=== PATIENT | male | born 1990 | race Caucasian/White ===

== ENCOUNTER → 2016-10-28 | Outpatient (CLI) | payer MEDICARE, MEDICAID ==
[~2016-10-28] MED LIST: AMAN100C18 PO; AMAN100T PO; AMLO10TA2 PO; ASPI1TAB69 PO; ASPI1TAB91 PO; BACI500O9 TOPICAL; CARB200T PO; CARB400T2 PO; CARV12.52 PO; CLAR10CA3 PO; FLUT1SPR16 EACH NARE; IBUP200T2 PO; IBUP800T23 PO; LEVO100T5 PO; LISI20TA3 PO; METH1CHW2 PO; METH5TAB7 PO; PEPT262S PO; ZOFR4TAB PO
[2016-10-28 08:58] LABS: MEAN CELL VOLUME 93.5 FL (80.0-100.0); MEAN CORPUSCULAR HEMOGLOBIN 31.7 PG (27.0-34.0); PLATELET COUNT 171 TH/MM3 (150-450); RED BLOOD COUNT 5.03 MIL/MM3 (4.50-5.90); RED CELL DISTRIBUTION WIDTH 13.3 % (11.6-17.2); REVIEW FLAG FINAL; WHITE BLOOD COUNT 7.1 TH/MM3 (4.0-11.0)
== END ==
LOC: CLAB 08:21
PROVIDERS: ATTEND Family Medicine
DX: R50.9 Fever, unspecified (principal)
CPT/HCPCS: 36415; 84443; 85027

== ENCOUNTER 2017-01-26 10:11 | Observation (INO) | payer MEDICARE, MEDICAID ==
[~2017-01-26] VITALS: Ht 157.5 cm; Wt 75.0 kg
[2017-01-26] VITALS (11 sets, daily range): BP systolic 110–124; BP diastolic 59–74; PULSE 66–86; RESP 16–21; TEMP 96.8–98.9; O2SAT 97–99
[~2017-01-26 10:11] MED LIST changes: -AMAN100C18 PO; -ASPI1TAB91 PO; -BACI500O9 TOPICAL; -CARB200T PO; -CLAR10CA3 PO; -FLUT1SPR16 EACH NARE; -IBUP200T2 PO; -METH1CHW2 PO; -PEPT262S PO; -ZOFR4TAB PO
[2017-01-26] MEDS ORDERED: SODIUM CHLOR 0.9% 1000 ML INJ 1,000 ML IV ONE (10:30)
[2017-01-26] MEDS ORDERED: SODIUM CHLORIDE 0.9% FLUSH 10 ML FLUSH IVF PRN (10:30)
[2017-01-26 10:42] LABS: AUTOMATED NEUTROPHIL # 5.9 TH/MM3 (1.8-7.7); BASOPHIL % 0.6 % (0.0-2.0); EOSINOPHIL # 0.3 TH/MM3 (0-0.4); EOSINOPHIL % 3.1 % (0.0-4.0); HEMATOCRIT 48.8 % (39.0-51.0); HEMO FLAGS DIFF FINAL; LYMPH % 15.7 % (9.0-44.0); LYMPHOCYTE # 1.3 TH/MM3 (1.0-4.8); MEAN CELL VOLUME 95.1 FL (80.0-100.0); MEAN CORPUSCULAR HEMOGLOBIN 32.1 PG (27.0-34.0); MEAN CORPUSCULAR HGB CONC 33.7 % (32.0-36.0); MONO % 8.1 % (0.0-8.0); NEUT % 72.5 % (16.0-70.0); PLATELET COUNT 185 TH/MM3 (150-450); RED BLOOD COUNT 5.13 MIL/MM3 (4.50-5.90); RED CELL DISTRIBUTION WIDTH 12.2 % (11.6-17.2); WHITE BLOOD COUNT 8.2 TH/MM3 (4.0-11.0)
[2017-01-26 10:54] LABS: INTERNATIONAL NORMALIZED RATIO 1.1 RATIO; PROTHROMBIN TIME - PATIENT 12.2 SEC (9.8-11.6)
[2017-01-26] MEDS ORDERED: CARB400T2 PO ×2 (11:04)
[2017-01-26] MEDS ORDERED: CLAR10CA3 PO (11:04)
[2017-01-26] MEDS ORDERED: IBUP200T2 PO (11:04)
[2017-01-26] MEDS ORDERED: PEPT262S PO (11:04)
[2017-01-26] MEDS ORDERED: BACI500O9 TOPICAL (11:04)
[2017-01-26] MEDS ORDERED: AMAN100T PO (11:04)
[2017-01-26] MEDS ORDERED: ZOFR4TAB PO (11:04)
[2017-01-26] MEDS ORDERED: FLUT1SPR16 EACH NARE (11:04)
[2017-01-26] MEDS ORDERED: ASPI1TAB91 PO (11:04)
[2017-01-26 11:08] LABS: ANION GAP 5 MEQ/L (5-15); BLOOD UREA NITROGEN 20 MG/DL (7-18); CHLORIDE 100 MEQ/L (98-107); CREATINE KINASE 102 U/L (39-308); GLOMERULAR FILTRATION RATE 71 ML/MIN (>89); SODIUM (NA) 138 MEQ/L (136-145)
[2017-01-26 11:11] LABS: POTASSIUM 4.5 MEQ/L (3.5-5.1)
--- NOTE | 2017-01-26 12:02 | RADRPT ---
EXAM DATE/TIME: 01/26/2017 11:29 [facility] COMPARISON: No previous studies available for comparison. INDICATIONS : Possible syncopal episode with fall RADIATION DOSE: 36.90 CTDIvol (mGy) MEDICAL HISTORY : None SURGICAL HISTORY : None. ENCOUNTER: Initial ACUITY: 1 day PAIN SCALE: 0/10 LOCATION: cranial TECHNIQUE: Multiple contiguous axial images were obtained of the head. Using automated exposure control and adj ustment of the mA and/or kV according to patient size, radiation dose was kept as low as reasonably a chievable to obtain optimal diagnostic quality images. FINDINGS: The examination demonstrates a 5.0 x 2.0 cm arachnoid cyst over the high left parietal cortices. There is no acute intercranial hemorrhage. The ventricles are normal in size and configuration. No ma ss lesion is identified. The appearance of the posterior fossa is unremarkable. No findings to indica te acute cortical infarction are present. The osseous structures of the skull are intact. CONCLUSION: 1. 5.0 x 2.9 cm arachnoid cyst overlying the high left parietal cortices. This appears chronic in dur ation. This could be further assessed with MRI imaging if it is felt clinically warranted. 2. No acute abnormality identified. Ranjit Norwood MD on January 26, 2017 at 11:59 Board Certified Radiologist. This report was verified electronically.
--- NOTE | 2017-01-26 12:25 | PD ---
HPI Chief Complaint: Syncope/Near-Syncope Time Seen by Provider: 10:20 Travel History International Travel<30 days: No Contact w/Intl Traveler<30days: No Traveled to known affect area: No History of Present Illness HPI 27-year-old male came to the emergency room with history of syncopal episode while he was at a workshop. The syncope was witnessed. 911 was called. When they arrived patient blood pressure was 83 systolic. He was slowly waking up. Fluid was started and just prior to them coming into the emergency room blood pressure went up to 95 systolic. Patient is currently awake and answering questions appropriately. He says he feels very weak. When he passed out he fell and hurt his left knee. There is an abrasion. Patient says he did not hit his head. Vital signs upon arrival was stable. Blood pressure was 110 systolic. PFSH Past Medical History Narrative Medical List of his past medical, surgical, social and family history was reviewed from the nursing note. Diminished Hearing: No Gastrointestinal Disorders: Yes (FUNDAL PLACATION - NAUSEA ) Tetanus Vaccination: Unknown Influenza Vaccination: Yes Social History Alcohol Use: No Tobacco Use: No Substance Use: No Allergies-Medications (Allergen,Severity, Reaction): Coded Allergies: No Known Allergies (Unverified , 01/18/17) Comments No known drug allergies. Reported Meds & Prescriptions Reported Meds & Active Scripts Active Methylphenidate IR (Methylphenidate HCl) 5 Mg Tab 5 Mg PO DAILY Carvedilol 12.5 Mg Tab 12.5 Mg PO BID Lisinopril-Hctz 20-25 Mg Tab 1 Tab PO DAILY Levothyroxine (Levothyroxine Sodium) 100 Mcg Tab 100 Mcg PO DAILY Amlodipine (Amlodipine Besylate) 10 Mg Tab 10 Mg PO DAILY Ibuprofen 800 Mg Tab 800 Mg PO Q8H PRN Reported Sm Allergy Relief Nasal S (Fluticasone Propionate (Nasal)) 50 Mcg/Act Spr 1 Spr EACH NARE DAILY Amantadine (Amantadine HCl) 100 Mg Tab 200 Mg PO BID Aspirin Adult Low Strength (Aspirin) 81 Mg Tabdr 81 Mg PO DAILY IN THE PM Carbamazepine ER 12 HR (Carbamazepine) 400 Mg Tab 800 Mg PO DAILY IN THE PM Carbamazepine ER 12 HR (Carbamazepine) 400 Mg Tab 400 Mg PO DAILY IN THE AM Pepto-Bismol Liq (Bismuth Subsalicylate) 262 Mg/15 Ml Susp 30 Ml PO EVERY HOUR PRN Do not exceed 8 doses (240 mL or 16 tbsp) in 24 hours. Bacitracin Topical 500 Unit/Gm Oint 1 Applic TOPICAL DAILY PRN Apply to right foot as needed Ibuprofen 200 Mg Tab 400 Mg PO Q4H PRN Zofran (Ondansetron HCl) 4 Mg Tab 4 Mg PO Q6HR PRN Claritin (Loratadine) 10 Mg Cap 10 Mg PO DAILY PRN Narrative Medication List of his home medications reviewed from the nursing note. Review of Systems Except as stated in HPI: all other systems reviewed are Neg Physical Exam Narrative GENERAL: Awake, alert, mild distress SKIN: Focused skin assessment warm/dry. Superficial abrasion on the left knee. No active bleeding HEAD: Atraumatic. Normocephalic. EYES: Pupils equal and round. No scleral icterus. No injection or drainage. ENT: No nasal bleeding or discharge. Mucous membranes pink and moist. NECK: Trachea midline. No JVD. CARDIOVASCULAR: Regular rate and rhythm. No murmur appreciated. RESPIRATORY: No accessory muscle use. Clear to auscultation. Breath sounds equal bilaterally. GASTROINTESTINAL: Abdomen soft, non-tender, nondistended. Hepatic and splenic margins not palpable. MUSCULOSKELETAL: No obvious deformities. No clubbing. No cyanosis. No edema. NEUROLOGICAL: Awake and alert. No obvious cranial nerve deficits. Motor grossly within normal limits. Normal speech. PSYCHIATRIC: Appropriate mood and affect; insight and judgment normal. Data Data Last Documented VS Vital Signs Date Time Temp Pulse Resp B/P Pulse Ox O2 Delivery O2 Flow Rate FiO2 01/26/17 12:00 72 18 111/59 99 Room Air 01/26/17 10:19 98.1 Orders Electrocardiogram (01/26/17 10:20) Prothrombin Time / Inr (Pt) (01/26/17 10:20) Complete Blood Count With Diff (01/26/17 10:20) Basic Metabolic Panel (Bmp) (01/26/17 10:20) Creatine Kinase (Cpk) (01/26/17 10:20) Troponin I (01/26/17 10:20) Urinalysis - C+S If Indicated (01/26/17 10:20) Ct Brain W/O Iv Contrast(Rout) (01/26/17 10:20) Ecg Monitoring (01/26/17 10:20) Iv Access Insert/Monitor (01/26/17 10:20) Oximetry (01/26/17 10:20) Sodium Chloride 0.9% Flush (Ns Flush) (01/26/17 10:30) Carbamazepine (Tegretol) (01/26/17 10:20) Sodium Chlor 0.9% 1000 Ml Inj (Ns 1000 M (01/26/17 10:30) Admit Order (Ed Use Only) (01/26/17 12:43) Labs Laboratory Tests Test 01/26/17 01/26/17 10:25 12:30 White Blood Count 8.2 TH/MM3 Red Blood Count 5.13 MIL/MM3 Hemoglobin 16.5 GM/DL Hematocrit 48.8 % Mean Corpuscular Volume 95.1 FL Mean Corpuscular Hemoglobin 32.1 PG Mean Corpuscular Hemoglobin 33.7 % Concent Red Cell Distribution Width 12.2 % Platelet Count 185 TH/MM3 Mean Platelet Volume 8.1 FL Neutrophils (%) (Auto) 72.5 % Lymphocytes (%) (Auto) 15.7 % Monocytes (%) (Auto) 8.1 % Eosinophils (%) (Auto) 3.1 % Basophils (%) (Auto) 0.6 % Neutrophils # (Auto) 5.9 TH/MM3 Lymphocytes # (Auto) 1.3 TH/MM3 Monocytes # (Auto) 0.7 TH/MM3 Eosinophils # (Auto) 0.3 TH/MM3 Basophils # (Auto) 0.0 TH/MM3 CBC Comment DIFF FINAL Differential Comment Prothrombin Time 12.2 SEC Prothromb Time International 1.1 RATIO Ratio Sodium Level 138 MEQ/L Potassium Level 4.5 MEQ/L Chloride Level 100 MEQ/L Carbon Dioxide Level 33.0 MEQ/L Anion Gap 5 MEQ/L Blood Urea Nitrogen 20 MG/DL Creatinine 1.24 MG/DL Estimat Glomerular Filtration 71 ML/MIN Rate Random Glucose 123 MG/DL Calcium Level 8.4 MG/DL Total Creatine Kinase 102 U/L Troponin I LESS THAN 0.02 NG/ML Carbamazepine (Tegretol) Level 16.1 MCG/ML Urine Color YELLOW Urine Turbidity CLEAR Urine pH 6.5 Urine Specific Leonard 1.013 Urine Protein TRACE mg/dL Urine Glucose (UA) NEG mg/dL Urine Ketones NEG mg/dL Urine Occult Blood NEG Urine Nitrite NEG Urine Bilirubin NEG Urine Urobilinogen LESS THAN 2.0 MG/DL Urine Leukocyte Esterase NEG Urine WBC 1 /hpf Urine Squamous Epithelial <1 /hpf Cells Urine Hyaline Casts 1 /lpf Urine Mucus FEW /lpf Microscopic Urinalysis Comment CULT NOT INDICATED MDM Medical Decision Making Medical Screen Exam Complete: Yes Emergency Medical Condition: Yes Medical Record Reviewed: Yes Interpretation(s) Twelve-lead EKG was reviewed by me. Normal sinus rhythm, left axis deviation, right bundle branch block. Heart rate of 65 bpm. Differential Diagnosis Orthostatic hypotension, cardiac arrhythmia, intracranial bleed, dehydration Narrative Course 12:20 PM patient was given total of 1 L of IV fluid once arriving into the ER. CT scan showed an old arachnoid cyst but no acute findings. Blood test was positive for elevated carbamazepine level. Patient says that he had something very similar 2-3 months ago. I would like to admit this patient for IV fluid and repeat carbamazepine level to see if it comes down. Awaiting for the residents to call back. Procedures EKG Prior to Arrival: Yes Diagnosis Primary Impression: Syncope Qualified Code: R55 - Syncope, unspecified syncope type Additional Impressions: Dehydration Elevated carbamazepine level Admitting Information Admitting Physician Requests: Observation Vitor Vargas MD Jan 26, 2017 12:25
--- NOTE | 2017-01-26 12:59 | HHI.HP ---
[facility] Service Family Medicine Primary Care Physician No Primary Care Physician Admission Diagnosis syncope, elevated carbamazepine level Diagnoses: International Travel<30 Days: No Contact w/Intl Traveler<30days: No Known Affected Area: No History of Present Illness Mr. Haider is a 27 y/o with past medical history of blindness presents to the emergency department s/p witnessed syncopal episode. He reports that earlier today while walking for [employer] to the bus stop he lost consciousness for approximately 3 minutes. This episode was observed with no reports of jerking limbs, incontinence, or tongue biting. [facility]. He states that prior to that episode he was diaphoretic. He reports 3 days of nausea and headaches without vomiting or diarrhea. This is the second episode of syncope over the last year without unknown etiology. He states that he did not strike his head during the fall, but did scrape his knee. Reports his daily fluid intake as 1 cup of water and approximately 4 sodas per day. (Donovan Oneil MD R1) Review of Systems Constitutional: COMPLAINS OF: Fever (Subjective), Dizziness, DENIES: Chills Eyes: COMPLAINS OF: Blurred vision (Legally blind) Ears, nose, mouth, throat: DENIES: Vertigo, Throat pain, Running Nose Respiratory: DENIES: Cough, Shortness of breath Cardiovascular: DENIES: Chest pain, Palpitations Gastrointestinal: COMPLAINS OF: Abdominal pain, Nausea, DENIES: Constipation, Diarrhea, Vomiting Musculoskeletal: DENIES: Joint pain Integumentary: DENIES: Rash Hematologic/lymphatic: DENIES: Lymphadenopathy Neurologic: COMPLAINS OF: Headache Psychiatric: DENIES: Mood changes (Donovan Oneil MD R1) Past Family Social History Past Medical History Past Medical History: -Visual impairment (legally blind) -Seizures (no seizure activity noted for many years) -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 Emergency contact is Tevin Ye ). For fun, he plays on his computer, rides his electric scooter, and he likes to read. Denies any tobacco, alcohol or illicit drug history. (Donovan Oneil MD R1) Physical Exam Vital Signs Vital Signs Date Time Temp Pulse Resp B/P Pulse Ox O2 Delivery O2 Flow Rate FiO2 01/26/17 10:19 98.1 66 19 110/59 99 Physical Exam CONSTITUTIONAL/GEN: Well-developed, normally nourished 27-year-old male lying in bed in no acute distress. HEENT: Atraumatic, normocephalic. Patient with decreased vision, however EOMI. Oropharynx clear with no erythema or exudate. Mucous membranes dry. No rhinorrhea. No JVD or LAD appreciated. LUNGS: Clear to auscultation bilaterally with no CRW. CARDIOVASCULAR: Regular rate and rhythm with no MGR. Capillary refill >2 seconds GI/ABD: Soft, nondistended with positive bowel sounds. Scar from previous surgery from the upper thorax in the midline down into the lower abdomen. Gastrostomy tube capped in left mid-abdomen. : No CVA tenderness NEURO: No focal deficits. Cranial nerves II through XII intact. Extremity sensation, motor function, and strength intact in all 4 extremities. SKIN: Warm and dry, no rash. Abrasion left knee HEME/LYMPH: No bruising, petechia or significant adenopathy MUSC: Back is normal in appearance. Extremities are normal in appearance. PSYCH/MENTAL STATUS: Alert and oriented x 3. Laboratory Laboratory Tests Test 01/26/17 10:25 White Blood Count 8.2 Red Blood Count 5.13 Hemoglobin 16.5 Hematocrit 48.8 Mean Corpuscular Volume 95.1 Mean Corpuscular Hemoglobin 32.1 Mean Corpuscular Hemoglobin 33.7 Concent Red Cell Distribution Width 12.2 Platelet Count 185 Mean Platelet Volume 8.1 Neutrophils (%) (Auto) 72.5 Lymphocytes (%) (Auto) 15.7 Monocytes (%) (Auto) 8.1 Eosinophils (%) (Auto) 3.1 Basophils (%) (Auto) 0.6 Neutrophils # (Auto) 5.9 Lymphocytes # (Auto) 1.3 Monocytes # (Auto) 0.7 Eosinophils # (Auto) 0.3 Basophils # (Auto) 0.0 CBC Comment DIFF FINAL Differential Comment Prothrombin Time 12.2 Prothromb Time International 1.1 Ratio Sodium Level 138 Potassium Level 4.5 Chloride Level 100 Carbon Dioxide Level 33.0 Anion Gap 5 Blood Urea Nitrogen 20 Creatinine 1.24 Estimat Glomerular Filtration 71 Rate Random Glucose 123 Calcium Level 8.4 Total Creatine Kinase 102 Troponin I LESS THAN 0.02 Carbamazepine (Tegretol) Level 16.1 (Donovan Oneil MD R1) Result Diagram: 01/26/17 1025 01/26/17 1025 Assessment and Plan Assessment and Plan Mr. Haider is a 27 y/o with past medical history of blindness presents to the emergency department s/p witnessed syncopal episode likely secondary to depleted intervascular volume. Code Status Full Discussed Condition With Dr. Vargas, ER physician Dr. Fito Mendiola (Donovan Oneil MD R1) Attending Attestation Patient seen and examined. Case reviewed and discussed with the resident team. Agree with plan of care as discussed with me and documented in the resident note. (Beatriz Payton MD) Problem List: (1) Syncope Status: Acute Plan: Patient with witnessed syncopal episode likely secondary to dehydration. Patient will be admitted for further observation and IV hydration. No report of seizure-like activity and patient showing no signs of postictal state despite history of seizure-like activity. Head CT: 5 x 2.9 cm arachnoid cyst overlying the high left parietal cortices. Appears chronic in duration. Could be further assessed with MRI imaging if clinically warranted. No acute abnormality identified. CBC: Within normal limits BMP: Glucose 123, BUN 20, CO2 33 LFT: Pending Troponin less than 0.02 EEG: Pending Echocardiogram: Pending Carotid ultrasound: PendingEKG: Normal sinus rhythm with rate of 65. Right bundle branch block. No QRS prolongation. No QT interval prolongation. Inverted T waves V1 through V6. (Per medical team read) Cardiac telemetry Fall precautions Medications: Home cardiac/blood pressure medications continued, except for amlodipine 10 mg daily held Normal saline at 100 mL per hour, discontinued after chart review showing severe heart failure history Ativan 2 mg every 10 minutes when necessary for seizures (2) Dehydration Status: Acute Plan: Patient with signs on physical exam of mild dehydration likely contributing to his syncopal episode. Please see plan as above. (3) Elevated carbamazepine level Status: Acute Plan: Patient found to have elevated carbamazepine level on admission. Level will be repeated every 4 hours until level begins to decrease (levels may peak within first 96 hours). Patient without any recent seizure activity or prolonged QRS on EKG. Carbamazepine level: 16.1, repeat every 4 hours Medications: Consider sodium bicarbonate for acute toxicity with EKG or acute neurological changes (4) Heart failure Status: Acute Plan: Patient with history of chronic heart failure since his sense 5 years. Echocardiogram, pending Medications: Continue home medications, amlodipine decreased to 5 mg daily Fluids discontinued (5) Visual impairment Status: Chronic Plan: Patient with visual impairment since Accommodate as necessary (6) Ajpnydy-Hxbqwzodc-Qfcwg syndrome Status: Chronic Plan: Patient with right lower extremity concerning forKlippel Trenaunay Kendall Syndrome Continue home regimen Continue to monitor (7) Hypothyroidism Status: Acute Plan: Patient with history of hypothyroidism Continue levothyroxine 100 g daily (8) Nutrition, metabolism, and development symptoms Status: Acute Plan: Fluids: Initiated, however due to patient's CHF discontinued Diet: Swallowing evaluation pending regular diet as tolerated Electrodes: Within normal limits, continue to monitor GI prophylaxis: Not indicated Prophylaxis: Zofran when necessary for nausea/vomiting, Clonidine when necessary for BP greater than 180/100, Amelie-Colace when necessary for constipation, hydroxyzine PRN for insomnia (9) No contraindication to deep vein thrombosis (DVT) prophylaxis Status: Acute Plan: Heparin twice a day SCD/TEDs (Donovan Oneil MD R1) Physician Certification 2 Midnight Certification Type: Admission for Inpatient Services Order for Inpatient Services The services are ordered in accordance with Medicare regulations or non- Medicare payer requirements, as applicable. In the case of services not specified as inpatient-only, they are appropriately provided as inpatient services in accordance with the 2-midnight benchmark. Estimated LOS (days): 3 3 days is the estimated time the patient will need to remain in the hospital, assuming treatment plan goals are met and no additional complications. Post-Hospital Plan: Home (Donovan Oneil MD R1) Problem Qualifiers (1) Syncope: Qualified Code: R55 - Syncope, unspecified syncope type Donovan Oneil MD R1 Jan 26, 2017 12:59 Beatriz Payton MD Jan 27, 2017 08:10
[2017-01-26] MEDS ORDERED: SODIUM CHLORIDE 0.9% FLUSH 10 ML FLUSH IV FLUSH PRN ×2 (13:00→17:45)
[2017-01-26] MEDS ORDERED: SODIUM CHLORIDE 0.9% FLUSH 10 ML FLUSH IV FLUSH SCH (13:00)
[2017-01-26 13:04] LABS: BLOOD, URINE NEG (NEG); COMMENT (UR) CULT NOT INDICATED; CULTURE IF INDICATED CULT NOT INDICATED; GLUCOSE,URINE NEG (NEG); HYALINE CAST, URINE 1 /lpf (RARE); KETONE, URINE NEG (NEG); MUCUS URINE FEW /lpf (OCC); NITRITE,URINE NEG (NEG); PH, URINE 6.5 (5.0-8.5); SQUAMOUS EPITHELIAL CELL URINE <1 /hpf (0-5); URINE COLOR YELLOW (YELLW/STRAW)
[2017-01-26] MEDS ORDERED: SODIUM CHLOR 0.9% 1000 ML INJ 1,000 ML IV SCH (15:00)
--- NOTE | 2017-01-26 17:02 | HHI.FPPN ---
Subjective Remarks Patient was seen, examined and discussed with the medicine team. This is a 27-year-old male with impaired vision who was walking to a bus stop today carrying a drink from [employer] and lost consciousness. He was observed, and [facility] brought him to the emergency department. He does not think he struck his head and thinks she may have been out for about 3 minutes. Did not bite his tongue, did not lose continence. He did scrape his left knee. This happened to him one year ago as well. He notes for the last 3 days or so he has had some stomach upset, and just prior to the event of today, he felt very sweaty. He has been living locally at [facility] since August. Please see history and physical examination for this hospitalization for additional past, family, social history and review of systems. He is hungry, and understands that he will be admitted for a period of observation. His carbamazepine dose has not recently been changed, and he has not taken his medication any differently than usual. He gets assistance setting up his medications and they are always double checked by a nurse. Objective Vitals Vital Signs Date Time Temp Pulse Resp B/P Pulse Ox O2 Delivery O2 Flow Rate FiO2 01/26/17 16:24 98.9 74 18 124/73 98 01/26/17 15:31 86 01/26/17 14:33 96.8 73 16 119/71 99 01/26/17 14:00 74 20 119/72 100 01/26/17 13:00 72 21 114/70 99 Room Air 01/26/17 12:00 72 18 111/59 99 Room Air 01/26/17 11:00 70 18 99 01/26/17 10:19 Room Air 01/26/17 10:19 98.1 66 19 110/59 99 Result Diagram: 01/26/17 1025 01/26/17 1025 Other Results Laboratory Tests Test 01/26/17 01/26/17 10:25 12:30 Neutrophils (%) (Auto) 72.5 % Monocytes (%) (Auto) 8.1 % Prothrombin Time 12.2 SEC Carbon Dioxide Level 33.0 MEQ/L Blood Urea Nitrogen 20 MG/DL Estimat Glomerular Filtration 71 ML/MIN Rate Random Glucose 123 MG/DL Calcium Level 8.4 MG/DL Troponin I LESS THAN 0.02 NG/ML Carbamazepine (Tegretol) Level 16.1 MCG/ML Urine Mucus FEW /lpf Imaging Last Impressions Head CT 01/26/17 1020 Signed Impressions: Service Date/Time: January 11:29 - CONCLUSION: 1. 5.0 x 2.9 cm arachnoid cyst overlying the high left parietal cortices. This appears chronic in duration. This could be further assessed with MRI imaging if it is felt clinically warranted. 2. No acute abnormality identified. Ranjit Norwood MD Objective Remarks O. CONSTITUTIONAL/GEN: normally nourished, in NAD. EYES: conjunctiva normal, PERRLA, EOMI. ENT: Mouth and pharynx normal. Mucous membranes slightly dry NECK: No thyromegaly or lymphadenopathy LUNGS: clear A-P, respiratory effort is normal. CARDIOVASCULAR: RR without murmur or gallop. No significant edema. GI/ABD: soft without masses, without organomegaly. Scar from previous surgery from the upper thorax in the midline down into the lower abdomen. Gastrostomy tube capped in left mid-abdomen. : no CVA tenderness NEURO: No focal deficits. Tested and intact SKIN: color normal, no rashes noted. Abrasion left knee HEME/LYMPH: no bruising, petechia or significant adenopathy MUSC: back is normal in appearance. Extremities are normal in appearance. PSYCH/MENTAL STATUS: Alert and oriented x 3. A/P Assessment and Plan Syncopal episode and a 27-year-old with congenital visual impairment and Klippel Trenaunay Kendall syndrome and high carbamazepine level. Attending Attestation Patient seen and examined. Case reviewed and discussed with the resident team. Agree with plan of care as discussed with me and documented in the resident note. Problem List: (1) Syncope Status: Acute (2) Dehydration Status: Acute (3) Elevated carbamazepine level Status: Acute (4) Bfinedx-Cepyqdqlv-Tiqdi syndrome Status: Chronic (5) Visual impairment Status: Chronic Problem Qualifiers (1) Syncope: Qualified Code: R55 - Syncope, unspecified syncope type Beatriz Payton MD Jan 26, 2017 17:01
[2017-01-26] MEDS ORDERED: IBUPROFEN 200 MG TAB PO PRN (19:45)
[2017-01-26] MEDS ORDERED: LORazepam 2 MG/ML VIAL IV PRN (19:45)
[2017-01-26] MEDS ORDERED: BACITRACIN TOP OINT 15 GM TUBE TOPICAL PRN (19:45)
[2017-01-26] MEDS ORDERED: BISMUTH SUBSALICYLATE 240 ML BTL PO PRN (19:45)
[2017-01-26] MEDS ORDERED: ONDANSETRON ODT 4 MG TAB PO PRN ×2 (20:00→20:15)
[2017-01-26] MEDS ORDERED: DOCUSATE SODIUM 50 MG/SENNA 8.6 MG TAB PO PRN (20:15)
[2017-01-26] MEDS ORDERED: cloNIDine HCL 0.1 MG TAB PO PRN (20:15)
[2017-01-26] MEDS: SODIUM CHLORIDE 0.9% FLUSH 10 ML FLUSH IV FLUSH SCH (21:00)
[2017-01-26] MEDS: CARVEDILOL 12.5 MG TAB PO SCH (21:11)
[2017-01-26] MEDS: AMANTADINE HCL 100 MG CAP PO SCH (21:11)
[2017-01-26] MEDS: HEPARIN SODIUM - SQ 10,000 UNITS/ML VIAL SQ SCH (21:12)
[2017-01-26 22:47] LABS: INDIRECT BILIRUBIN 0.4 MG/DL (0.0-0.8); TOTAL BILIRUBIN ADULT 0.5 MG/DL (0.2-1.0)
--- NOTE | 2017-01-26 23:58 | RADRPT ---
EXAM DATE/TIME: 01/26/2017 23:07 [facility] COMPARISON: No previous studies available for comparison. INDICATIONS : Syncope. MEDICAL HISTORY : Hypertension. Thyroid disease. Seizures. Sleep apnea. Asthma. ADD. SURGICAL HISTORY : Heart surgery as child. G-tube placed. Right foot. Cleft palate repair. ENCOUNTER: Initial ACUITY: 1 day PAIN SCORE: 0/10 LOCATION: Bilateral neck PEAK SYSTOLIC VELOCITIES (cm/sec): ICA/CCA RATIO: Right: 0.5 Left: 0.6 ICA: Right: 58 Left: 66 CCA: Right: 110 Left: 104 ECA: Right: 83 Left: 79 VERTEBRAL: Right: 38 antegrade Left: 35 antegrade Elevated flow velocities and ICA/CCA ratios have been found to correlate with increased degrees of vessel stenosis, calculated as percentage of diameter relative to a normal segment of distal ICA/CCA FINDINGS: RIGHT CAROTID: No significant stenosis is visualized. The waveforms are within normal limits. LEFT CAROTID: No significant stenosis is visualized. The waveforms are within normal limits. VERTEBRAL ARTERIES: Antegrade flow is seen in both vertebral arteries. MISCELLANEOUS: None. CONCLUSION: 1. No evidence of hemodynamically significant lesion. Alvaro Lebron MD on January 26, 2017 at 23:57 Board Certified Radiologist. This report was verified electronically.
[2017-01-27] VITALS: BP 104/59; PULSE 71; RESP 20; TEMP 98.2; O2SAT 99
[2017-01-27 04:00] VITALS: BP 113/61; PULSE 69; RESP 20; TEMP 97.8; O2SAT 98
[2017-01-27] MEDS ORDERED: LEVOTHYROXINE SODIUM 100 MCG TAB PO SCH (06:00)
[2017-01-27 07:17] VITALS: BP 130/74; PULSE 71; RESP 16; TEMP 98.5; O2SAT 98
[2017-01-27 07:40] LABS: BASOPHIL # 0.1 TH/MM3 (0-0.2); BASOPHIL % 0.7 % (0.0-2.0); EOSINOPHIL # 0.2 TH/MM3 (0-0.4); EOSINOPHIL % 2.7 % (0.0-4.0); HEMO FLAGS DIFF FINAL; LYMPH % 22.1 % (9.0-44.0); LYMPHOCYTE # 1.7 TH/MM3 (1.0-4.8); MEAN CELL VOLUME 95.1 FL (80.0-100.0); MEAN CORPUSCULAR HEMOGLOBIN 32.2 PG (27.0-34.0); MEAN CORPUSCULAR HGB CONC 33.9 % (32.0-36.0); NEUT % 66.5 % (16.0-70.0); PLATELET COUNT 170 TH/MM3 (150-450); RED BLOOD COUNT 4.83 MIL/MM3 (4.50-5.90); RED CELL DISTRIBUTION WIDTH 11.9 % (11.6-17.2); WHITE BLOOD COUNT 7.5 TH/MM3 (4.0-11.0)
[2017-01-27 08:00] LABS: ALT (GPT) 26 U/L (12-78); ANION GAP 9 MEQ/L (5-15); AST (GOT) 14 U/L (15-37); BICARBONATE 29.3 MEQ/L (21.0-32.0); BLOOD UREA NITROGEN 13 MG/DL (7-18); CHLORIDE 100 MEQ/L (98-107); GLOMERULAR FILTRATION RATE 125 ML/MIN (>89); POTASSIUM 3.5 MEQ/L (3.5-5.1); SODIUM (NA) 138 MEQ/L (136-145)
[2017-01-27 08:03] LABS: ALKALINE PHOSPHATASE 66 U/L (45-117); TOTAL BILIRUBIN ADULT 0.7 MG/DL (0.2-1.0)
[2017-01-27] MEDS ORDERED: amLODIPine BESYLATE 5 MG TAB PO SCH (09:00)
[2017-01-27] MEDS ORDERED: LISINOPRIL 20 MG TAB PO SCH (09:00)
[2017-01-27] MEDS: HEPARIN SODIUM - SQ 10,000 UNITS/ML VIAL SQ SCH (09:00)
[2017-01-27] MEDS ORDERED: METHYLPHENIDATE HCL 5 MG TAB PO SCH (09:00)
[2017-01-27] MEDS ORDERED: ASPIRIN EC 81 MG TABEC PO SCH (09:00)
[2017-01-27] MEDS ORDERED: NON-FORMULARY DRUG (Lisinopril-Hctz 1 TAB) PO SCH (09:00)
[2017-01-27] MEDS ORDERED: HYDROCHLOROTHIAZIDE 25 MG TAB PO SCH (09:00)
[2017-01-27] MEDS: SODIUM CHLORIDE 0.9% FLUSH 10 ML FLUSH IV FLUSH SCH (10:59)
[2017-01-27] MEDS: CARVEDILOL 12.5 MG TAB PO SCH (10:59)
[2017-01-27 11:00] VITALS: PULSE 85
[2017-01-27] MEDS: AMANTADINE HCL 100 MG CAP PO SCH (11:00)
[2017-01-27 11:27] VITALS: BP 121/77; PULSE 78; RESP 16; TEMP 97.8; O2SAT 97
--- NOTE | 2017-01-27 13:13 | HHI.DCPOC ---
Discharge Care Plan Diagnosis: (1) Syncope (2) Dehydration (3) Elevated carbamazepine level Goals to Promote Your Health * To prevent worsening of your condition and complications * To maintain your health at the optimal level Directions to Meet Your Goals Take your medications as prescribed Follow your dietary instruction Follow activity as directed Keep your appointments as scheduled Take your immunizations and boosters as scheduled If your symptoms worsen call your PCP, if no PCP go to Urgent Care Center or Emergency Room Smoking is Dangerous to Your Health. Avoid second hand smoke Call the 24-hour hour crisis hotline for domestic abuse at Donovan Oneil MD R1 Jan 27, 2017 13:13
[2017-01-27 15:14] VITALS: BP 126/74; PULSE 75; RESP 16; TEMP 98.1; O2SAT 98
--- NOTE | 2017-01-27 16:13 | MG ---
cc: VALARIE GOLDEN M.D. Lab No: [id number] Date: Age: 27 Sex: M Race: REFERRING: Dr. Oneil. ROOM: -. Hyperventilation and photic completed. Fair effort awake study. CT showed a 1.5 x 2.9 arachnoid cyst high left parietal chronic. Admitted with syncope while at a workshop. He has a history of thyroid disease, sleep apnea, history of seizures, cleft palate repaired. On Synthroid, Symmetrel, Coreg and heparin. DESCRIPTION OF RECORD: There is quite a bit of muscle artifact overall seems he has a 6-7 Hz background. Photic stimulation with minimal driving response. A lot of muscle artifact. Hyperventilation was then performed with no significant change. No attenuation. IMPRESSION: Mildly abnormal EEG due to mild slowing may be due to medication effect or mild encephalopathy. No evidence of any epileptiform features in this one recording. Clinical correlation. MD ANA Logan/PEE /2:18 PM /4:09 PM
--- NOTE | 2017-01-27 17:27 | ECHRPT ---
Indication: syncope CONCLUSIONS Wall thickness is normal. The left ventricular systolic function is low normal with an estimated ejection fraction in the rang e of 50- 55%. Sebir-ce-ktva mitral valve regurgitation. Mild aortic valve regurgitation. There is mild tricuspid valve regurgitation. BP: 130 / 71 HR: 71 Rhythm: MEASUREMENTS (Male / Female) Normal Values Technical Quality:Fair 2D ECHO LV Diastolic Diameter PLAX 4.4 cm 4.2 - 5.9 / 3.9 - 5.3 cm LV Systolic Diameter PLAX 3.5 cm IVS Diastolic Thickness 1.0 cm 0.6 - 1.0 / 0.6 - 0.9 cm LVPW Diastolic Thickness 0.9 cm 0.6 - 1.0 / 0.6 - 0.9 cm LV Relative Wall Thickness 0.4 RV Internal Dim ED PLAX 2.1 cm M-MODE Aortic Root Diameter MM 2.6 cm LA Systolic Diameter MM 3.2 cm LA Ao Ratio MM 1.2 AV Cusp Separation MM 1.5 cm DOPPLER AI Peak Velocity 314.0 cm/s AI Peak Gradient 39.4 mmHg AI Pressure Half Time 722.0 ms Mitral E Point Velocity 73.1 cm/s Mitral A Point Velocity 53.3 cm/s Mitral E to A Ratio 1.4 TR Peak Velocity 213.0 cm/s TR Peak Gradient 18.1 mmHg FINDINGS LEFT VENTRICLE Normal left ventricular size and wall thickness. Wall thickness is normal. The left ventricular systolic function is low normal with an estimated ejection fraction in the rang e of 50- 55%. RIGHT VENTRICLE Normal right ventricular size and systolic function. LEFT ATRIUM The left atrial size is normal. RIGHT ATRIUM The right atrial size is normal. ATRIAL SEPTUM Normal atrial septal thickness without atrial level shunting by limited color doppler interrogation. AORTA The aortic root and proximal ascending aorta are normal in size on limited imaging. MITRAL VALVE Structurally normal mitral valve. Unlxi-wi-jrkw mitral valve regurgitation. AORTIC VALVE Trileaflet aortic valve. Mild aortic valve regurgitation. TRICUSPID VALVE Structurally normal tricuspid valve. There is mild tricuspid valve regurgitation. PULMONARY VALVE The pulmonary valve is not well visualized. VESSELS The inferior vena cava is normal in size. PERICARDIUM No pericardial effusion. Lauri Shelton MD, FACC, FSCAI (Electronically Signed) Final Date:27 January 2017 17:26
--- NOTE | 2017-01-27 18:13 | HHI.FPPN ---
Subjective Remarks Patient seen and examined this morning. No acute events overnight with vital signs stable. Patient states that he is ready to go home and feels back to his baseline. He is currently undergoing his EEG. He has no complaints this morning. He denies any fevers, chills, shortness of breath, chest pain, NVD, or calf tenderness. (Donovan Oneil MD R1) Objective Vitals Vital Signs Date Time Temp Pulse Resp B/P Pulse Ox O2 Delivery O2 Flow Rate FiO2 01/27/17 15:14 98.1 75 16 126/74 98 01/27/17 11:27 97.8 78 16 121/77 97 01/27/17 11:00 85 01/27/17 07:17 98.5 71 16 130/74 98 01/27/17 04:00 97.8 69 20 113/61 98 01/27/17 00:00 98.2 71 20 104/59 99 01/26/17 21:10 97 01/26/17 20:02 78 01/26/17 19:34 97.6 80 16 123/74 97 I/O 01/26/17 01/26/17 01/26/17 01/27/17 01/27/17 01/27/17 07:00 15:00 23:00 07:00 15:00 23:00 Intake Total 230 ml Balance 230 ml Intake Oral 30 ml IV Total 200 ml # Voids 1 (Donovan Oneil MD R1) Result Diagram: 01/27/1762101/27/17621 Objective Remarks CONSTITUTIONAL/GEN: Well-developed, normally nourished 27-year-old male lying in bed in no acute distress. Currently undergoing EEG. HEENT: Atraumatic, normocephalic. Patient with decreased vision, however EOMI. Oropharynx clear with no erythema or exudate. Mucous membranes moist. No rhinorrhea. No JVD or LAD appreciated. LUNGS: Clear to auscultation bilaterally with no CRW. CARDIOVASCULAR: Regular rate and rhythm with no MGR. Capillary refill >2 seconds GI/ABD: Soft, nondistended with positive bowel sounds. Scar from previous surgery from the upper thorax in the midline down into the lower abdomen. Gastrostomy tube capped in left mid-abdomen. NEURO: No focal deficits. Cranial nerves II through XII intact. Extremity sensation, motor function, and strength intact in all 4 extremities. SKIN: Warm and dry, no rash. Abrasion left knee. HEME/LYMPH: No bruising, petechia or significant adenopathy MUSC: Back is normal in appearance. Extremities are normal in appearance. PSYCH/MENTAL STATUS: Alert and oriented x 3. (Donovan Oneil MD R1) A/P Assessment and Plan Mr. Haider is a 27 y/o with past medical history of blindness presents to the emergency department s/p witnessed syncopal episode likely secondary to depleted intervascular volume. Discharge Planning Today pending negative evaluation for syncopal episode. Patient instructed to follow-up with PCP in 1 week with a carbamazepine level to be drawn in 3-5 days. (Donovan Oneil MD R1) Attending Attestation Patient seen and examined. Case reviewed and discussed with the resident team. Agree with plan of care as discussed with me and documented in the resident note. (Beatriz Payton MD) Problem List: (1) Syncope Status: Acute Plan: Patient with witnessed syncopal episode likely secondary to dehydration. Patient will be admitted for further observation and IV hydration. No report of seizure-like activity and patient showing no signs of postictal state despite history of seizure-like activity. Head CT: 5 x 2.9 cm arachnoid cyst overlying the high left parietal cortices. Appears chronic in duration. Could be further assessed with MRI imaging if clinically warranted. No acute abnormality identified. CBC: Within normal limits BMP: Glucose 123, BUN 20, CO2 33 LFT: Pending Troponin less than 0.02 EEG: Mildly abnormal EEG due to mild slowing secondary to medication effect or encephalopathy. No evidence of any epileptiform features. Echocardiogram: Ejection fraction 50-55%. Trace-mild aortic valve regurgitation. Mild tricuspid valve regurgitation. Carotid ultrasound: Within normal limits EKG: Normal sinus rhythm with rate of 65. Right bundle branch block. No QRS prolongation. No QT interval prolongation. Inverted T waves V1 through V6. (Per medical team read) Cardiac telemetry Fall precautions Medications: Home cardiac/blood pressure medications continued at discharge Normal saline at 100 mL per hour, discontinued after chart review showing severe heart failure history Ativan 2 mg every 10 minutes when necessary for seizures (2) Dehydration Status: Acute Plan: Patient with signs on physical exam of mild dehydration likely contributing to his syncopal episode. Please see plan as above. (3) Elevated carbamazepine level Status: Acute Plan: Patient found to have elevated carbamazepine level on admission. Level will be repeated every 4 hours until level begins to decrease (levels may peak within first 96 hours). Patient without any recent seizure activity or prolonged QRS on EKG. Carbamazepine level: 16.1, 17, 15.3, 13.9, 11.4 (within normal limits) Medications: Consider sodium bicarbonate for acute toxicity with EKG or acute neurological changes (4) Heart failure Status: Acute Plan: Patient with history of chronic heart failure since his sense 5 years. 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 Continue home regimen Continue to monitor (7) Hypothyroidism Status: Acute Plan: Patient with history of hypothyroidism Continue levothyroxine 100 g daily (8) Nutrition, metabolism, and development symptoms Status: Acute Plan: Fluids: Initiated, however due to patient's CHF discontinued Diet: Swallowing evaluation pending regular diet as tolerated Electrodes: Within normal limits, continue to monitor GI prophylaxis: Not indicated Prophylaxis: Zofran when necessary for nausea/vomiting, Clonidine when necessary for BP greater than 180/100, Amelie-Colace when necessary for constipation, hydroxyzine PRN for insomnia (9) No contraindication to deep vein thrombosis (DVT) prophylaxis Status: Acute Plan: Heparin twice a day, discontinued at discharge SCD/TEDs (Donovan Oneil MD R1) Problem Qualifiers (1) Syncope: Qualified Code: R55 - Syncope, unspecified syncope type Donovan Oneil MD R1 Jan 27, 2017 18:13 Beatriz Payton MD Jan 27, 2017 18:48
--- NOTE | 2017-01-27 22:59 | EKG ---
Date Performed: 01/26/2017 Time Performed: 10:25:49 PTAGE: 27 years EKG: Sinus rhythm POSSIBLE LEFT ATRIAL ENLARGEMENT RIGHT BUNDLE BRANCH BLOCK MODERATE T-WAVE ABNORMALITY, CONSIDER ANT EROLATERAL ISCHEMIA ABNORMAL ECG NO PREVIOUS TRACING DOCTOR: Pati Garcia Interpretating Date/Time 01/27/2017 22:58:21
[2017-02-09] MEDS ORDERED: CARB400T2 PO (14:51)
== END 2017-01-27 17:25 | disposition home or self-care (01) ==
LOC: NEPE 10:11 → NEDA 12:44 → NEPHCDU 14:08
PROVIDERS: ADMIT Family Medicine; ATTEND Family Medicine
DX: R55 Syncope and collapse (principal); E86.0 Dehydration; H54.7 Unspecified visual loss; R79.89 Other specified abnormal findings of blood chemistry; Q87.2 Congenital malformation syndromes predominantly involving limbs; E03.9 Hypothyroidism, unspecified; I11.0 Hypertensive heart disease with heart failure; I50.9 Heart failure, unspecified; Z79.82 Long term (current) use of aspirin
CPT/HCPCS: 70450; 80048; 80053; 80076; 80156; 81001; 82550; 84484; 85025; 85610; 93005; 93306; 93880; 95819; 96360; 96361; 96372; 99285; G0378; J1644; J7030

== ENCOUNTER → 2017-02-03 | Outpatient (CLI) | payer MEDICARE, MEDICAID ==
[~2017-02-03] MED LIST changes: -ASPI1TAB69 PO; +ASPI1TAB91 PO; +BACI500O9 TOPICAL; +CLAR10CA3 PO; +FLUT1SPR16 EACH NARE; +IBUP200T2 PO; +PEPT262S PO; +ZOFR4TAB PO
== END ==
LOC: CLAB 14:49
PROVIDERS: ATTEND Family Medicine Sports Medicine
DX: R79.9 Abnormal finding of blood chemistry, unspecified (principal)
CPT/HCPCS: 36415; 80156

== ENCOUNTER → 2017-02-20 | Outpatient (CLI) | payer MEDICARE, MEDICAID ==
[~2017-02-20] MED LIST changes: +CARB200T PO; +CIPR500T2 PO; +MAGNSOL2 PO
== END ==
LOC: CLAB 11:55
PROVIDERS: ATTEND Family Medicine
DX: R79.9 Abnormal finding of blood chemistry, unspecified (principal)
CPT/HCPCS: 36415; 80156

== ENCOUNTER 2017-02-21 09:18 | Emergency (ER) | payer MEDICARE, MEDICAID ==
[~2017-02-21 09:18] MED LIST changes: -CARB200T PO; -CIPR500T2 PO; -MAGNSOL2 PO
[2017-02-21 09:21] VITALS: BP 141/78; PULSE 98; RESP 16; TEMP 98.2; O2SAT 99
[2017-02-21] MEDS ORDERED: SODIUM CHLOR 0.9% 1000 ML INJ 1,000 ML IV SCH (09:52)
--- NOTE | 2017-02-21 09:55 | PD ---
HPI Chief Complaint: GI Complaint Time Seen by Provider: 09:47 Travel History International Travel<30 days: No Contact w/Intl Traveler<30days: No Traveled to known affect area: No History of Present Illness HPI The patient is a 27-year-old male who presents to the emergency department for lower abdominal pain of 2 days' duration. The patient states his last normal bowel movement was on Monday, since then he has had some loose and watery episodes of diarrhea. He complains of lower abdominal pain and pressure that radiates to the back and is associated with mild nausea. He denies any vomiting. The patient does have a history of previous cardiac surgery with scars that extend into the abdomen and gastrostomy tube placement. However, the patient eats normally, does not rely on his G-tube for nutrition. He denies any dysuria, frequency, or urgency. The patient to cover the medications, bisacodyl, for his constipation without any alleviation of his symptoms. PFSH Past Medical History ADD: Yes Asthma: Yes Blood Disorders: No Heart Rhythm Problems: No Cancer: No Cardiovascular Problems: Yes (HEART SURGERIES) High Cholesterol: No Chest Pain: No Congestive Heart Failure: No Cerebrovascular Accident: Yes ("MOM THINKS I HAD ONE WHEN I WAS [age] DAYS OLD") Diabetes: No Diminished Hearing: No Endocrine: Yes Gastrointestinal Disorders: Yes (FUNDAL PLACATION - NAUSEA ) Genitourinary: No Hypertension: Yes Musculoskeletal: No Neurologic: Yes (seizure) Psychiatric: No Reproductive: No Respiratory: Yes Seizures: Yes Sleep Apnea: Yes Thyroid Disease: Yes Tetanus Vaccination: < 5 Years Influenza Vaccination: Yes Past Surgical History Abdominal Surgery: Yes (GASTROSTOMY TUBE NON USE ) Cardiac Surgery: Yes Thoracic Surgery: Yes Other Surgery: Yes (CLEFT PALATE REPAIR ) Social History Alcohol Use: No (pt denies) Tobacco Use: No (pt denies) Substance Use: No (pt denies) Allergies-Medications (Allergen,Severity, Reaction): Coded Allergies: No Known Allergies (Unverified , 02/21/17) Reported Meds & Prescriptions Reported Meds & Active Scripts Active Magnesium Citrate Liq (Magnesium Citrate) 300 Ml Liq 300 Ml PO ONCE Carbamazepine ER 12 HR (Carbamazepine) 400 Mg Tab 400 Mg PO Q12HR Methylphenidate IR (Methylphenidate HCl) 5 Mg Tab 5 Mg PO DAILY Carvedilol 12.5 Mg Tab 12.5 Mg PO BID Lisinopril-Hctz 20-25 Mg Tab 1 Tab PO DAILY Levothyroxine (Levothyroxine Sodium) 100 Mcg Tab 100 Mcg PO DAILY Amlodipine (Amlodipine Besylate) 10 Mg Tab 10 Mg PO DAILY Ibuprofen 800 Mg Tab 800 Mg PO Q8H PRN Reported Sm Allergy Relief Nasal S (Fluticasone Propionate (Nasal)) 50 Mcg/Act Spr 1 Spr EACH NARE DAILY Amantadine (Amantadine HCl) 100 Mg Tab 200 Mg PO BID Aspirin Adult Low Strength (Aspirin) 81 Mg Tabdr 81 Mg PO DAILY IN THE PM Zofran (Ondansetron HCl) 4 Mg Tab 4 Mg PO Q6HR PRN Claritin (Loratadine) 10 Mg Cap 10 Mg PO DAILY PRN Review of Systems Except as stated in HPI: all other systems reviewed are Neg General / Constitutional: No: Fever Cardiovascular: No: Chest Pain or Discomfort Respiratory: No: Shortness of Breath Gastrointestinal: Positive: Nausea, Diarrhea, Abdominal Pain, Constipation, Changes in Bowel Habits, No: Vomiting Genitourinary: No: Dysuria Skin: No Rash Physical Exam Narrative GENERAL: Awake, alert, pleasant 27-year-old male who appears his stated age and is in no acute respiratory distress. SKIN: Focused skin assessment warm/dry. HEAD: Atraumatic. Normocephalic. EYES: Pupils equal and round. No scleral icterus. No injection or drainage. ENT: No nasal bleeding or discharge. Mucous membranes pink and moist. NECK: Trachea midline. No JVD. CARDIOVASCULAR: Regular rate and rhythm. No murmur appreciated. RESPIRATORY: No accessory muscle use. Clear to auscultation. Breath sounds equal bilaterally. GASTROINTESTINAL: Abdomen soft, well-healed midline scar in the upper abdomen. Gastrostomy tube in place. Mild tenderness lower quadrants bilaterally but no obvious distention. Genitourinary: Circumcised phallus. Both testicles are descended. Rectal: No obvious fecal impaction. MUSCULOSKELETAL: No obvious deformities. No clubbing. No cyanosis. No edema. NEUROLOGICAL: Awake and alert. No obvious cranial nerve deficits. Motor grossly within normal limits. Normal speech. PSYCHIATRIC: Appropriate mood and affect; insight and judgment normal. Data Data Last Documented VS Vital Signs Date Time Temp Pulse Resp B/P Pulse Ox O2 Delivery O2 Flow Rate FiO2 02/21/17 11:51 97.8 89 16 122/66 99 Room Air Orders Complete Blood Count With Diff (02/21/17 09:52) Comprehensive Metabolic Panel (02/21/17 09:52) Lipase (02/21/17 09:52) Urinalysis - C+S If Indicated (02/21/17 09:52) Ct Abd/Pel W/O Iv Contrast (02/21/17 09:52) Iv Access Insert/Monitor (02/21/17 09:52) Ecg Monitoring (02/21/17:52) Oximetry (02/21/17 09:52) Morphine Inj (Morphine Inj) (02/21/17 10:00) Ondansetron Inj (Zofran Inj) (02/21/17 10:00) Sodium Chlor 0.9% 1000 Ml Inj (Ns 1000 M (02/21/17 09:52) Sodium Chloride 0.9% Flush (Ns Flush) (02/21/17 10:00) Carbamazepine (Tegretol) (02/21/17 09:55) Labs Laboratory Tests Test 02/21/17 09:52 White Blood Count 17.6 TH/MM3 Red Blood Count 4.76 MIL/MM3 Hemoglobin 15.3 GM/DL Hematocrit 45.3 % Mean Corpuscular Volume 95.1 FL Mean Corpuscular Hemoglobin 32.1 PG Mean Corpuscular Hemoglobin 33.7 % Concent Red Cell Distribution Width 12.3 % Platelet Count 175 TH/MM3 Mean Platelet Volume 8.0 FL Neutrophils (%) (Auto) 86.0 % Lymphocytes (%) (Auto) 4.2 % Monocytes (%) (Auto) 9.0 % Eosinophils (%) (Auto) 0.5 % Basophils (%) (Auto) 0.3 % Neutrophils # (Auto) 15.1 TH/MM3 Lymphocytes # (Auto) 0.7 TH/MM3 Monocytes # (Auto) 1.6 TH/MM3 Eosinophils # (Auto) 0.1 TH/MM3 Basophils # (Auto) 0.1 TH/MM3 CBC Comment DIFF FINAL Differential Comment Sodium Level 132 MEQ/L Potassium Level 3.6 MEQ/L Chloride Level 94 MEQ/L Carbon Dioxide Level 30.6 MEQ/L Anion Gap 7 MEQ/L Blood Urea Nitrogen 12 MG/DL Creatinine 0.99 MG/DL Estimat Glomerular Filtration 92 ML/MIN Rate Random Glucose 100 MG/DL Calcium Level 9.1 MG/DL Total Bilirubin 0.7 MG/DL Aspartate Amino Transf 9 U/L (AST/SGOT) Alanine Aminotransferase 17 U/L (ALT/SGPT) Alkaline Phosphatase 65 U/L Total Protein 8.1 GM/DL Albumin 3.8 GM/DL Lipase 234 U/L Carbamazepine (Tegretol) Level 15.7 MCG/ML MDM Medical Decision Making Medical Screen Exam Complete: Yes Emergency Medical Condition: Yes Medical Record Reviewed: Yes Interpretation(s) CT of the abdomen and pelvis reveals no definite abnormality to explain the patient's pelvic pain. Laboratory Tests Test 02/21/17 09:52 White Blood Count 17.6 TH/MM3 Red Blood Count 4.76 MIL/MM3 Hemoglobin 15.3 GM/DL Hematocrit 45.3 % Mean Corpuscular Volume 95.1 FL Mean Corpuscular Hemoglobin 32.1 PG Mean Corpuscular Hemoglobin 33.7 % Concent Red Cell Distribution Width 12.3 % Platelet Count 175 TH/MM3 Mean Platelet Volume 8.0 FL Neutrophils (%) (Auto) 86.0 % Lymphocytes (%) (Auto) 4.2 % Monocytes (%) (Auto) 9.0 % Eosinophils (%) (Auto) 0.5 % Basophils (%) (Auto) 0.3 % Neutrophils # (Auto) 15.1 TH/MM3 Lymphocytes # (Auto) 0.7 TH/MM3 Monocytes # (Auto) 1.6 TH/MM3 Eosinophils # (Auto) 0.1 TH/MM3 Basophils # (Auto) 0.1 TH/MM3 CBC Comment DIFF FINAL Differential Comment Sodium Level 132 MEQ/L Potassium Level 3.6 MEQ/L Chloride Level 94 MEQ/L Carbon Dioxide Level 30.6 MEQ/L Anion Gap 7 MEQ/L Blood Urea Nitrogen 12 MG/DL Creatinine 0.99 MG/DL Estimat Glomerular Filtration 92 ML/MIN Rate Random Glucose 100 MG/DL Calcium Level 9.1 MG/DL Total Bilirubin 0.7 MG/DL Aspartate Amino Transf 9 U/L (AST/SGOT) Alanine Aminotransferase 17 U/L (ALT/SGPT) Alkaline Phosphatase 65 U/L Total Protein 8.1 GM/DL Albumin 3.8 GM/DL Lipase 234 U/L Tegretol 15.7 Differential Diagnosis Differential diagnosis includes small bowel obstruction, partial small bowel obstruction, constipation, fecal impaction, gastroenteritis, dehydration. Narrative Course IV was established, labs are drawn and sent, and the patient was placed on cardiac telemetry monitoring and continuous pulse oximetry monitoring. Rectal exam was performed, no obvious fecal impaction. Patient does have previous abdominal scars which placement increased risk for small bowel obstruction. Therefore, noncontrast CT of the abdomen and pelvis was ordered to evaluate for possible obstruction. The patient was administered morphine, Zofran, and IV fluids. His white count was elevated at 17.6, LFTs and lipase are unremarkable. CT is negative. The patient will be discharged home a magnesium citrate, is advised to follow-up with his primary physician return if symptoms worsen or progress. The patient's Tegretol level is elevated at 15.7, previous admission was 19. The patient will be advised to hold Tegretol for 2 days and follow-up with his primary physician. The mother and patient will be provided a copy of his labs and CT results at discharge. Diagnosis Primary Impression: Abdominal pain Qualified Code: R10.30 - Lower abdominal pain Additional Impressions: Constipation Qualified Code: K59.00 - Constipation, unspecified constipation type Elevated carbamazepine level Patient Instructions: General Instructions Additional Instructions: Please provide a patient a copy of his CT results and lab results at discharge. Magnesium citrate as directed. Follow-up with her primary physician. Return if symptoms worsen or progress. Med/Other Pt SpecificInfo: Prescription(s) given Scripts Magnesium Citrate Liq 300 Ml [id number] Ml PO ONCE #1 BOTTLE Ref 0 Prov:Fareed Dave MD 02/21/17 Disposition: 01 DISCHARGE HOME Condition: Stable Fareed Dave MD Feb 21, 2017 09:55
[2017-02-21 10:00] VITALS: RESP 17; O2SAT 99
[2017-02-21] MEDS ORDERED: SODIUM CHLORIDE 0.9% FLUSH 10 ML FLUSH IV FLUSH PRN (10:00)
[2017-02-21] MEDS ORDERED: MORPHINE SULFATE 4 MG/ML INJ IV PUSH ONE (10:00)
[2017-02-21] MEDS ORDERED: ONDANSETRON HCL 4 MG/2 ML VIAL IVP ONE (10:00)
[2017-02-21 10:19] LABS: AUTOMATED NEUTROPHIL # 15.1 TH/MM3 (1.8-7.7); BASOPHIL # 0.1 TH/MM3 (0-0.2); BASOPHIL % 0.3 % (0.0-2.0); EOSINOPHIL # 0.1 TH/MM3 (0-0.4); EOSINOPHIL % 0.5 % (0.0-4.0); HEMATOCRIT 45.3 % (39.0-51.0); HEMO FLAGS DIFF FINAL; LYMPH % 4.2 % (9.0-44.0); LYMPHOCYTE # 0.7 TH/MM3 (1.0-4.8); MEAN CELL VOLUME 95.1 FL (80.0-100.0); MEAN CORPUSCULAR HEMOGLOBIN 32.1 PG (27.0-34.0); MEAN CORPUSCULAR HGB CONC 33.7 % (32.0-36.0); PLATELET COUNT 175 TH/MM3 (150-450); RED BLOOD COUNT 4.76 MIL/MM3 (4.50-5.90); RED CELL DISTRIBUTION WIDTH 12.3 % (11.6-17.2); WHITE BLOOD COUNT 17.6 TH/MM3 (4.0-11.0)
[2017-02-21 10:34] LABS: ALT (GPT) 17 U/L (12-78); ANION GAP 7 MEQ/L (5-15); AST (GOT) 9 U/L (15-37); BICARBONATE 30.6 MEQ/L (21.0-32.0); BLOOD UREA NITROGEN 12 MG/DL (7-18); CHLORIDE 94 MEQ/L (98-107); GLOMERULAR FILTRATION RATE 92 ML/MIN (>89); POTASSIUM 3.6 MEQ/L (3.5-5.1); SODIUM (NA) 132 MEQ/L (136-145)
[2017-02-21 10:37] LABS: ALKALINE PHOSPHATASE 65 U/L (45-117); TOTAL BILIRUBIN ADULT 0.7 MG/DL (0.2-1.0)
[2017-02-21 11:51] VITALS: BP 122/66; PULSE 89; RESP 16; TEMP 97.8; O2SAT 99
--- NOTE | 2017-02-21 11:53 | RADRPT ---
EXAM DATE/TIME: 02/21/2017 11:12 [facility] COMPARISON: CT BRAIN W/O CONTRAST, January 26, 2017, 11:29. INDICATIONS : Pelvic pain for several days ORAL CONTRAST: No oral contrast ingested. RADIATION DOSE: 4.84 CTDIvol (mGy) MEDICAL HISTORY : Seizures. Cardiovascular disease Hypertension. SURGICAL HISTORY : g-tube, fundal placation ENCOUNTER: Initial ACUITY: 2 days PAIN SCALE: 5/10 LOCATION: lower quadrant TECHNIQUE: Volumetric scanning of the abdomen and pelvis was performed. Using automated exposure control and ad justment of the mA and/or kV according to patient size, radiation dose was kept as low as reasonably achievable to obtain optimal diagnostic quality images. DICOM format image data is available electro nically for review and comparison. FINDINGS: The limited portion of the lung base visualized is clear. The appearance of the liver, spleen, pancreas, adrenal glands and kidneys is within normal limits. There is no free intraperitoneal air. No free intraperitoneal fluid is identified. There is no retrop eritoneal lymphadenopathy. The aorta is normal in caliber. The examination demonstrates a gastrostomy tube in good position. The visualized loops of small and l arge bowel are normal in appearance. There is no free fluid within the pelvis. No iliac or inguinal adenopathy is present. The visualized loops of small and large bowel within the pelvis are unremarkable. The visualized osseous structures are intact. CONCLUSION: No definite abnormality to explain the patient's pelvic pain identified. Ranjit Norwood MD on February 21, 2017 at 11:45 Board Certified Radiologist. This report was verified electronically.
[2017-02-21] MEDS ORDERED: MAGNSOL2 PO (12:09)
[2017-02-21 12:34] VITALS: BP 127/82; TEMP 97.7
[2017-02-21 12:39] LABS: BACTERIA, URINE MOD /hpf; BLOOD, URINE NEG (NEG); COMMENT (UR) CULTURE INDICATED; CULTURE IF INDICATED CULTURE INDICATED; GLUCOSE,URINE NEG (NEG); HYALINE CAST, URINE 1 /lpf (RARE); KETONE, URINE 40 mg/dL (NEG); MUCUS URINE FEW /lpf (OCC); NITRITE,URINE NEG (NEG); PH, URINE 5.5 (5.0-8.5); URINE COLOR YELLOW (YELLW/STRAW)
[2017-02-21] MEDS ORDERED: CIPR500T2 PO (16:17)
[2017-03-01] MEDS ORDERED: METH5TAB7 PO (08:11)
[2017-03-01] MEDS ORDERED: CARB200T PO (14:23)
[2017-03-02] MEDS ORDERED: AMAN100T PO (10:37)
[2017-03-02] MEDS ORDERED: CARB200T PO (12:19)
== END 2017-02-21 12:34 | disposition home or self-care (01) ==
LOC: NEPD 09:18
DX: K59.00 Constipation, unspecified (principal); R78.89 Finding of other specified substances, not normally found in blood; N39.0 Urinary tract infection, site not specified; B96.5 Pseudomonas (aeruginosa) (mallei) (pseudomallei) as the cause of diseases classified elsewhere
CPT/HCPCS: 74176; 80053; 80156; 81001; 83690; 85025; 87077; 87086; 87186; 96361; 96374; 96375; 99285; J2270; J2405; J7030

== ENCOUNTER 2017-05-17 10:02 | Observation (INO) | payer MEDICARE, MEDICAID ==
[~2017-05-17] VITALS: Ht 157.5 cm; Wt 62.0 kg
[2017-05-17] VITALS (8 sets, daily range): BP systolic 95–134; BP diastolic 53–88; PULSE 60–84; RESP 17–20; TEMP 97.6–98; O2SAT 97–100
[~2017-05-17 10:02] MED LIST changes: -BACI500O9 TOPICAL; +CARB200T PO; -CARB400T2 PO; +CIPR500T2 PO; -IBUP200T2 PO; +MAGNSOL2 PO; -PEPT262S PO
[2017-05-17] MEDS ORDERED: SODIUM CHLOR 0.9% 1000 ML INJ 1,000 ML IV ONE (10:51)
[2017-05-17] MEDS ORDERED: SODIUM CHLORIDE 0.9% FLUSH 10 ML FLUSH IVF PRN (11:00)
--- NOTE | 2017-05-17 11:01 | PD ---
HPI Chief Complaint: Syncope/Near-Syncope Time Seen by Provider: 10:32 Travel History International Travel<30 days: No Contact w/Intl Traveler<30days: No Traveled to known affect area: No History of Present Illness HPI This is a 27-year-old male with a history of seizure disorder, congenital aortic arch disease, status post surgery/repair, hypothyroidism, who presents after having a syncopal episode. Patient states that he was standing when he felt generally weak and the next thing he remembers is waking up on the floor. He states that he was out no more than a few seconds. There is no reported seizure activity. There is no reported postictal state. No incontinence. The patient had a previous syncopal episode 2 years back where he states that his Tegretol level was elevated which caused it. There are no other reported abnormalities. He denies any pain in his head neck or back. PFSH Past Medical History ADD: Yes Asthma: Yes Blood Disorders: No Heart Rhythm Problems: No Cancer: No Cardiovascular Problems: Yes High Cholesterol: No Chest Pain: No Congestive Heart Failure: No Cerebrovascular Accident: Yes ("MOM THINKS I HAD ONE WHEN I WAS [age] DAYS OLD") Diabetes: No Diminished Hearing: No Endocrine: Yes Gastrointestinal Disorders: Yes (FUNDAL PLACATION - NAUSEA ) Genitourinary: No Hypertension: Yes Musculoskeletal: No Neurologic: Yes (seizure) Psychiatric: No Reproductive: No Respiratory: Yes Seizures: Yes Sleep Apnea: Yes Thyroid Disease: Yes Tetanus Vaccination: < 5 Years Past Surgical History Abdominal Surgery: Yes (GASTROSTOMY TUBE NON USE ) Cardiac Surgery: Yes (OPEN HEART SX) Thoracic Surgery: Yes Other Surgery: Yes (CLEFT PALATE REPAIR ) Social History Alcohol Use: No (pt denies) Tobacco Use: No (pt denies) Substance Use: No (pt denies) Allergies-Medications (Allergen,Severity, Reaction): Coded Allergies: No Known Allergies (Unverified , 04/20/17) Reported Meds & Prescriptions Reported Meds & Active Scripts Active Methylphenidate IR (Methylphenidate HCl) 5 Mg Tab 5 Mg PO DAILY Carbamazepine 200 Mg Tab 400 Mg PO BID Take two 200 mg tabs twice a day (total is 400 mg 2x per rtr=588 mg daily) Amantadine (Amantadine HCl) 100 Mg Tab 200 Mg PO BID Magnesium Citrate Liq (Magnesium Citrate) 300 Ml Liq 300 Ml PO ONCE Carvedilol 12.5 Mg Tab 12.5 Mg PO BID Lisinopril-Hctz 20-25 Mg Tab 1 Tab PO DAILY Levothyroxine (Levothyroxine Sodium) 100 Mcg Tab 100 Mcg PO DAILY Amlodipine (Amlodipine Besylate) 10 Mg Tab 10 Mg PO DAILY Ibuprofen 800 Mg Tab 800 Mg PO Q8H PRN Reported Aspirin Adult Low Strength (Aspirin) 81 Mg Tabdr 81 Mg PO DAILY IN THE PM Zofran (Ondansetron HCl) 4 Mg Tab 4 Mg PO Q6HR PRN Claritin (Loratadine) 10 Mg Cap 10 Mg PO DAILY PRN Review of Systems Except as stated in HPI: all other systems reviewed are Neg General / Constitutional: No: Fever, Chills Eyes: Positive: Blindness (patient is visually impaired which is not new.), No : Pain HENT: No: Headaches, Neck Pain Cardiovascular: No: Chest Pain or Discomfort, Palpitations, Irregular Rhythm, Tachycardia Respiratory: No: Cough, Shortness of Breath Gastrointestinal: No: Nausea, Vomiting, Abdominal Pain Genitourinary: No: Dysuria, Nocturia, Incontinence Musculoskeletal: Positive: Weakness (prior to the syncopal episode patient reports feeling weak. None now.), No: Pain Neurologic: Positive: Weakness (prior to the syncopal episode, none now.), Syncope, No: Headache, Change in Mentation, Incontinence, Seizures (none reported.), Sensory Disturbance Physical Exam Narrative GENERAL: Well-developed well-nourished male in no acute respiratory distress. SKIN: Focused skin assessment warm/dry. HEAD: Atraumatic. Normocephalic. EYES: No scleral icterus. No injection or drainage. Chronic visual impairment. No new findings. ENT: No nasal bleeding or discharge. Mucous membranes pink and moist. NECK: Trachea midline. Supple.. CARDIOVASCULAR: Regular rate and rhythm. No ectopy. RESPIRATORY: No accessory muscle use. Clear to auscultation. Breath sounds equal bilaterally. GASTROINTESTINAL: Abdomen soft, non-tender, nondistended. Hepatic and splenic margins not palpable. MUSCULOSKELETAL: . No clubbing. No cyanosis. No edema. NEUROLOGICAL: Awake and alert. No obvious cranial nerve deficits. Motor grossly within normal limits. Normal speech. PSYCHIATRIC: Appropriate mood and affect; insight and judgment normal. Data Data Last Documented VS Vital Signs Date Time Temp Pulse Resp B/P (MAP) Pulse Ox O2 Delivery O2 Flow Rate FiO2 05/17/17 13:00 61 19 102/53 (69) 97 Room Air Orders Orders Complete Blood Count With Diff (05/17/17 10:51) Carbamazepine (Tegretol) (05/17/17 10:51) Blood Glucose (05/17/17 10:51) Ecg Monitoring (05/17/17 10:51) Iv Access Insert/Monitor (05/17/17 10:51) Oximetry (05/17/17 10:51) Comprehensive Metabolic Panel (05/17/17 10:51) Sodium Chlor 0.9% 1000 Ml Inj (Ns 1000 M (05/17/17 10:51) Sodium Chloride 0.9% Flush (Ns Flush) (05/17/17 11:00) Urinalysis - C+S If Indicated (05/17/17 10:51) Electrocardiogram (05/17/17 ) Admit Order (Ed Use Only) (05/17/17 14:14) Labs Laboratory Tests Test 05/17/17 11:00 05/17/17 12:00 White Blood Count 7.0 TH/MM3 Red Blood Count 4.78 MIL/MM3 Hemoglobin 15.5 GM/DL Hematocrit 44.4 % Mean Corpuscular Volume 93.0 FL Mean Corpuscular Hemoglobin 32.5 PG Mean Corpuscular Hemoglobin Concent 34.9 % Red Cell Distribution Width 12.9 % Platelet Count 174 TH/MM3 Mean Platelet Volume 8.1 FL Neutrophils (%) (Auto) 61.7 % Lymphocytes (%) (Auto) 22.0 % Monocytes (%) (Auto) 11.4 % Eosinophils (%) (Auto) 4.3 % Basophils (%) (Auto) 0.6 % Neutrophils # (Auto) 4.3 TH/MM3 Lymphocytes # (Auto) 1.5 TH/MM3 Monocytes # (Auto) 0.8 TH/MM3 Eosinophils # (Auto) 0.3 TH/MM3 Basophils # (Auto) 0.0 TH/MM3 CBC Comment DIFF FINAL Differential Comment Blood Urea Nitrogen 12 MG/DL Creatinine 0.84 MG/DL Random Glucose 65 MG/DL Total Protein 6.8 GM/DL Albumin 3.5 GM/DL Calcium Level 8.1 MG/DL Alkaline Phosphatase 67 U/L Aspartate Amino Transf (AST/SGOT) 11 U/L Alanine Aminotransferase (ALT/SGPT) 19 U/L Total Bilirubin 0.5 MG/DL Sodium Level 140 MEQ/L Potassium Level 3.5 MEQ/L Chloride Level 104 MEQ/L Carbon Dioxide Level 32.4 MEQ/L Anion Gap 4 MEQ/L Estimat Glomerular Filtration Rate 111 ML/MIN Carbamazepine (Tegretol) Level 12.1 MCG/ML Urine Color LIGHT-YELLOW Urine Turbidity CLEAR Urine pH 7.0 Urine Specific [place] 1.009 Urine Protein NEG mg/dL Urine Glucose (UA) NEG mg/dL Urine Ketones NEG mg/dL Urine Occult Blood NEG Urine Nitrite NEG Urine Bilirubin NEG Urine Urobilinogen LESS THAN 2.0 MG/DL Urine Leukocyte Esterase NEG Urine RBC 1 /hpf Urine WBC 1 /hpf Microscopic Urinalysis Comment CULT NOT INDICATED MDM Medical Decision Making Medical Screen Exam Complete: Yes Emergency Medical Condition: Yes Differential Diagnosis Cardiac syncope versus metabolic arrangement versus anemia versus atypical seizure abnormal Tegretol level. Narrative Course This is a 27-year-old male with a history of congenital heart disease, seizure disorder, hypothyroidism, presents today after having a syncopal episode. The patient had one previously 2 years ago and was found to have an elevated Tegretol level. The patient's Tegretol level is 12.1 which is barely supratherapeutic. Patient has an abnormal EKG. This was compared with an EKG from 01/26/2017. It shows no significant change. Given his cardiac history, I feel is prudent to bring the patient under observation and place him on telemetry to look for any cardiac arrhythmia. I do not believe this was a seizure as he woke up immediately after the event. There is a call out to the resident service for admission. Case was discussed with Dr. Edwards. He is agreeable for observation admission. Diagnosis Primary Impression: Syncope Additional Impressions: Elevated carbamazepine level Muhnopw-Vyhyegnui-Lrlay syndrome Visual impairment Admitting Information Admitting Physician Requests: Observation Simon Gordon MD May 17, 2017 11:01
[2017-05-17 11:22] LABS: AUTOMATED NEUTROPHIL # 4.3 TH/MM3 (1.8-7.7); BASOPHIL % 0.6 % (0.0-2.0); EOSINOPHIL # 0.3 TH/MM3 (0-0.4); EOSINOPHIL % 4.3 % (0.0-4.0); HEMATOCRIT 44.4 % (39.0-51.0); HEMO FLAGS DIFF FINAL; LYMPHOCYTE # 1.5 TH/MM3 (1.0-4.8); MEAN CORPUSCULAR HEMOGLOBIN 32.5 PG (27.0-34.0); MEAN CORPUSCULAR HGB CONC 34.9 % (32.0-36.0); MONO % 11.4 % (0.0-8.0); NEUT % 61.7 % (16.0-70.0); PLATELET COUNT 174 TH/MM3 (150-450); RED BLOOD COUNT 4.78 MIL/MM3 (4.50-5.90); RED CELL DISTRIBUTION WIDTH 12.9 % (11.6-17.2)
[2017-05-17 11:38] LABS: ALT (GPT) 19 U/L (12-78); ANION GAP 4 MEQ/L (5-15); AST (GOT) 11 U/L (15-37); BICARBONATE 32.4 MEQ/L (21.0-32.0); BLOOD UREA NITROGEN 12 MG/DL (7-18); CHLORIDE 104 MEQ/L (98-107); GLOMERULAR FILTRATION RATE 111 ML/MIN (>89); POTASSIUM 3.5 MEQ/L (3.5-5.1); SODIUM (NA) 140 MEQ/L (136-145)
[2017-05-17 11:41] LABS: ALKALINE PHOSPHATASE 67 U/L (45-117); TOTAL BILIRUBIN ADULT 0.5 MG/DL (0.2-1.0)
[2017-05-17 12:38] LABS: BLOOD, URINE NEG (NEG); COMMENT (UR) CULT NOT INDICATED; CULTURE IF INDICATED CULT NOT INDICATED; GLUCOSE,URINE NEG (NEG); KETONE, URINE NEG (NEG); NITRITE,URINE NEG (NEG); URINE COLOR LIGHT-YELLOW (YELLW/STRAW)
--- NOTE | 2017-05-17 14:04 | EKG ---
Date Performed: 05/17/2017 Time Performed: 10:14:27 PTAGE: 27 years EKG: Sinus rhythm RIGHT BUNDLE BRANCH BLOCK MODERATE T-WAVE ABNORMALITY, CONSIDER ANTEROLATERAL ISCHEMIA MODERATE T-WA VE ABNORMALITY, CONSIDER INFERIOR ISCHEMIA ABNORMAL ECG PREVIOUS TRACING : 01/26/2017 10.25 DOCTOR: Pepe Olson Interpretating Date/Time 05/17/2017 14:03:01
[2017-05-17] MEDS ORDERED: SODIUM CHLORIDE 0.9% FLUSH 10 ML FLUSH IV FLUSH PRN ×2 (14:45→16:15)
--- NOTE | 2017-05-17 15:54 | HHI.HP ---
[facility] Service Family Medicine Primary Care Physician Dc Perez , Veronica Payton MD Admission Diagnosis syncope, congenital heart disease, seizure disorder. Supratherapeut Diagnoses: Chief Complaint: syncope International Travel<30 Days: No Contact w/Intl Traveler<30days: No Known Affected Area: No History of Present Illness Patient is a 27-year-old male with history of seizures, congenital heart disease, heart failure presents with syncope. Patient states that this morning, he went to use the bathroom and was walking towards the door and he started feeling lightheaded. He said his legs bent underneath him and slid down the wall. He didn't hit his head. He states he is only out for a couple seconds. He denied any other symptoms besides dizziness. Denies any chest pain, shortness of breath, palpitations before the syncopal event. He denies any symptoms after waking up. Stated he felt groggy, but otherwise felt fine. No loss of bowel/bladder function. Per pt, no seizure activity per witnesses. Denies any anxiety or sweating before the event. No visual blurring. No headache. Denies any difficulty with urination. States he drinks water occasionally, mainly soda. No nausea/vomiting. Patient did have similar symptoms in January of this year, where he was admitted for observation for very similar symptoms. Cup was negative at that time. Patient did have elevated carbamazepine level on admission, otherwise no abnormalities. Does have a history of seizures, but has not had one in many years. Does have a history of hypertension and takes several blood pressure medications. He occasionally checks his blood pressure home. He states the last few days it is running in the 130s systolic. Normally, he doesn't feel dizzy with after standing up from sitting. Denies any fever/chills or recent illness. Denies any slurred speech, numbness/tingling, confusion, muscle weakness. Currently, he states he feels back to normal and denies any symptoms currently. Review of Systems Constitutional: DENIES: Fever, Chills, Dizziness, Night Sweats Eyes: COMPLAINS OF: Vision loss, DENIES: Diplopia Ears, nose, mouth, throat: DENIES: Nasal discharge, Throat pain, Ear Pain Respiratory: COMPLAINS OF: Cough, DENIES: Wheezing, Shortness of breath Cardiovascular: COMPLAINS OF: Syncope, DENIES: Chest pain, Palpitations Gastrointestinal: DENIES: Abdominal pain, Black stools, Bloody stools, Constipation, Diarrhea, Nausea, Vomiting Genitourinary: DENIES: Urgency, Hematuria, Dysuria Musculoskeletal: DENIES: Joint pain, Muscle aches, Neck pain Integumentary: DENIES: Abnormal pigmentation, Rash Hematologic/lymphatic: DENIES: Bruising, Lymphadenopathy Neurologic: DENIES: Headache, Paresthesias, Seizures Psychiatric: DENIES: Anxiety, Confusion Past Family Social History Past Medical History -Visual impairment (not legally blind) -Seizures (no seizure activity noted for many years) -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 -Arachnoid cyst (found incidentally on CT scan 01/2017). 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[place]) -Malabsorption (G-Tube) Past Surgical History Heart surgery x4 (congenital heart disease) G-tube placement Reported Medications Reported Meds & Active Scripts Active Methylphenidate IR (Methylphenidate HCl) 5 Mg Tab 5 Mg PO DAILY Carbamazepine 200 Mg Tab 400 Mg PO BID Take two 200 mg tabs twice a day (total is 400 mg 2x per bmf=380 mg daily) Amantadine (Amantadine HCl) 100 Mg Tab 200 Mg PO BID Carvedilol 12.5 Mg Tab 12.5 Mg PO BID Lisinopril-Hctz 20-25 Mg Tab 1 Tab PO DAILY Levothyroxine (Levothyroxine Sodium) 100 Mcg Tab 100 Mcg PO DAILY Amlodipine (Amlodipine Besylate) 10 Mg Tab 10 Mg PO DAILY Ibuprofen 800 Mg Tab 800 Mg PO Q8H PRN Reported Aspirin Adult Low Strength (Aspirin) 81 Mg Tabdr 81 Mg PO DAILY IN THE PM Zofran (Ondansetron HCl) 4 Mg Tab 4 Mg PO Q6HR PRN Claritin (Loratadine) 10 Mg Cap 10 Mg PO DAILY PRN Allergies: Coded Allergies: No Known Allergies (Unverified , 04/20/17) Active Ordered Medications Active Medications Sodium Chloride 1,000 ml @ 125 mls/hr Q8H ONCE IV Last administered on t 11:06; Admin Dose 125 MLS/HR; Start 05/17/17 at 10:51; Stop 05/17/17 at 18: 50 Sodium Chloride (NS Flush) 2 ml BID IV FLUSH; Start 05/17/17 at 21:00 Sodium Chloride (NS Flush) 2 ml UNSCH PRN IV FLUSH; Start 05/17/17 at 14:45 Sodium Chloride (NS Flush) 2 ml UNSCH PRN IVF; Start 05/17/17 at 11:00; Stop 05/17/17 at 14:40; Status DC Family History Unknown-adopted Social History Moved to [facility] in August and is currently working for the [employer]. 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 Emergency contact is Tevin Ye ). For fun, he plays on his computer, rides his electric scooter, and he likes to read. Denies any tobacco, alcohol or illicit drug history. Physical Exam Vital Signs Vital Signs Date Time Temp Pulse Resp B/P (MAP) Pulse Ox O2 Delivery O2 Flow Rate FiO2 05/17/17 15:00 70 19 122/80 (94) 99 Room Air 05/17/17 13:00 61 19 102/53 (69) 97 Room Air 05/17/17 11:06 100 Room Air 05/17/17 11:00 60 17 95/53 (67) 97 Room Air 05/17/17 10:20 65 20 100 Room Air 05/17/17 10:07 83 20 112/62 (79) 100 Physical Exam GENERAL: This is a well-nourished, well-developed patient, in no apparent distress. SKIN: No rashes, ecchymoses or lesions. Cool and dry. HEAD: Atraumatic. Normocephalic. EYES: Pt with decreased vision at baseline. Extraocular motions intact. No scleral icterus. No injection or drainage. ENT: Nose without bleeding. Throat without erythema, tonsillar hypertrophy or exudate. Uvula midline. Airway patent. NECK: Trachea midline. No JVD or lymphadenopathy. Supple, nontender. CARDIOVASCULAR: Regular rate and rhythm without murmurs, gallops, or rubs. RESPIRATORY: Clear to auscultation. Breath sounds equal bilaterally. No wheezes , rales, or rhonchi. GASTROINTESTINAL: Abdomen soft, non-tender, nondistended. No hepato-splenomegaly , or palpable masses. G-tube in place. MUSCULOSKELETAL: Extremities without clubbing, cyanosis, or edema. No joint tenderness, effusion, or edema noted. No calf tenderness. NEUROLOGICAL: Awake and alert. No dysphasia. Cranial nerves II through XII intact. Motor and sensory within normal limits bilaterally. No facial droop. Five out of 5 muscle strength in all muscle groups. Normal speech. Able to perform heel to rodriguez. No cerebellar signs. PSYCH: Awake, alert, orientedx3. No confusion. Good judgement and insight. Normal mood and affect. Laboratory Laboratory Tests Test 05/17/17 11:00 05/17/17 12:00 White Blood Count 7.0 Red Blood Count 4.78 Hemoglobin 15.5 Hematocrit 44.4 Mean Corpuscular Volume 93.0 Mean Corpuscular Hemoglobin 32.5 Mean Corpuscular Hemoglobin Concent 34.9 Red Cell Distribution Width 12.9 Platelet Count 174 Mean Platelet Volume 8.1 Neutrophils (%) (Auto) 61.7 Lymphocytes (%) (Auto) 22.0 Monocytes (%) (Auto) 11.4 Eosinophils (%) (Auto) 4.3 Basophils (%) (Auto) 0.6 Neutrophils # (Auto) 4.3 Lymphocytes # (Auto) 1.5 Monocytes # (Auto) 0.8 Eosinophils # (Auto) 0.3 Basophils # (Auto) 0.0 CBC Comment DIFF FINAL Differential Comment Blood Urea Nitrogen 12 Creatinine 0.84 Random Glucose 65 Total Protein 6.8 Albumin 3.5 Calcium Level 8.1 Alkaline Phosphatase 67 Aspartate Amino Transf (AST/SGOT) 11 Alanine Aminotransferase (ALT/SGPT) 19 Total Bilirubin 0.5 Sodium Level 140 Potassium Level 3.5 Chloride Level 104 Carbon Dioxide Level 32.4 Anion Gap 4 Estimat Glomerular Filtration Rate 111 Carbamazepine (Tegretol) Level 12.1 Urine Color LIGHT-YELLOW Urine Turbidity CLEAR Urine pH 7.0 Urine Specific [place] 1.009 Urine Protein NEG Urine Glucose (UA) NEG Urine Ketones NEG Urine Occult Blood NEG Urine Nitrite NEG Urine Bilirubin NEG Urine Urobilinogen LESS THAN 2.0 Urine Leukocyte Esterase NEG Urine RBC 1 Urine WBC 1 Microscopic Urinalysis Comment CULT NOT INDICATED Result Diagram: 05/17/17 1100 05/17/17 1100 Caprini VTE Risk Assessment Caprini VTE Risk Assessment: No/Low Risk (score <= 1) Caprini Risk Assessment Model Point Value = 1 Point Value = 2 Point Value = 3 Point Value = 5 Age 41-60 Minor surgery BMI > 25 kg/m2 Swollen legs Varicose veins or History of unexplained or recurrent spontaneous Oral contraceptives or hormone replacement Sepsis (< 1 month) Serious lung disease, including pneumonia (< 1 month) Abnormal pulmonary function Acute myocardial infarction Congestive heart failure (< 1 month) History of inflammatory bowel disease Medical patient at bed rest Age 61-74 Arthroscopic surgery Major open surgery (> 45 min) Laparoscopic surgery (> 45 min) Malignancy Confined to bed (> 72 hours) Immobilizing plaster cast Central venous access Age >= 75 History of VTE Family history of VTE Factor V Leiden Prothrombin [id number] Lupus anticoagulant Anticardiolipin antibodies Elevated serum homocysteine Heparin-induced thrombocytopenia Other congenital or acquired thrombophilia Stroke (< 1 month) Elective arthroplasty Hip, pelvis, or leg fracture Acute spinal cord injury (< 1 month) Prophylaxis Regimen Total Risk Factor Score Risk Level Prophylaxis Regimen 0-1 Low Early ambulation 2 Moderate Order ONE of the following: *Sequential Compression Device (SCD) *Heparin 5000 units SQ BID 3-4 Higher Order ONE of the following medications: *Heparin 5000 units SQ TID *Enoxaparin/Lovenox 40 mg SQ daily (WT < 150 kg, CrCl > 30 mL/min) *Enoxaparin/Lovenox 30 mg SQ daily (WT < 150 kg, CrCl > 10-29 mL/min) *Enoxaparin/Lovenox 30 mg SQ BID (WT < 150 kg, CrCl > 30 mL/min) AND/OR *Sequential Compression Device (SCD) 5 or more Highest Order ONE of the following medications: *Heparin 5000 units SQ TID (Preferred with Epidurals) *Enoxaparin/Lovenox 40 mg SQ daily (WT < 150 kg, CrCl > 30 mL/min) *Enoxaparin/Lovenox 30 mg SQ daily (WT < 150 kg, CrCl > 10-29 mL/min) *Enoxaparin/Lovenox 30 mg SQ BID (WT < 150 kg, CrCl > 30 mL/min) AND *Sequential Compression Device (SCD) Assessment and Plan Assessment and Plan 27-year-old male with history of blindness, internal heart disease presents for syncopal episode. Differential includes vasovagal, orthostatic, arrhythmia, seizures. We will admit for workup and monitoring. Code Status Full Discussed Condition With Dr. Gordon Problem List: (1) Syncope ICD Codes: R55 - Syncope and collapse Status: Acute Plan: DDx includes vasovagal, orthostatic/hypovolemia, electrolyte abnormality , arrhythmia, seizure EKG shows RBBB, no ST changes, sinus rhythm, no QRS prolongation; no changes since EKG in January 2017 CBC wnl. Glucose low at 65, Calcium low at 8.1, otherwise no electrolyte abnormality UA wnl, normal specific gravity, no sign of dehydration -Telemetry -Echocardiogram -EEG -Neuro checks -IVF at low rate due to chronic heart disease/possible heart failure -Orthostatic BP -TSH -Continue home meds, hold amlodipine to prevent hypotension -Ativan PRN seizures -AM CBC, BMP (2) Elevated carbamazepine level ICD Codes: R78.89 - Finding of other specified substances, not normally found in blood Status: Acute Plan: Mildly elevated carbamazepine level at 12.1. Elevated to 16 at last admission. No QRS prolongation on EKG -Continue carbamazepine for now -Monitor level in AM -Ativan PRN seizures -Needs close f/u with neurologist to monitor level vs change dosage (3) Congenital heart disease ICD Codes: Q24.9 - Congenital malformation of heart, unspecified Plan: Pt with congenital heart disease and s/p several cardiac surgeries EKG shows RBBB, stable since previous EKG Echo on 01/17/17: EF of 50-55% -Continue home meds, hold amlodipine to prevent low blood pressure -Add back on if hypertensive -Echocardiogram (4) Hypothyroidism ICD Codes: E03.9 - Hypothyroidism, unspecified Status: Acute Plan: Chronic hx of hypothyroidism -Continue home Synthroid -TSH (5) Vybffzw-Qkdqhmmeo-Ywaeg syndrome ICD Codes: Q87.2 - Congenital malformation syndromes predominantly involving limbs Status: Chronic Plan: Hx of syndrome that effects RLE -Continue to monitor (6) Visual impairment ICD Codes: H54.7 - Unspecified visual loss Status: Chronic Plan: Pt with visual impairment -Accommodate PRN (7) FEN Plan: Fluids: NS Electrolytes: wnl, continue to monitor Nutrition: Regular diet DVT ppx: SCDs Problem Qualifiers (1) Syncope: Qualified Codes: R55 - Syncope and collapse (2) Hypothyroidism: Qualified Codes: E03.9 - Hypothyroidism, unspecified Enrique Edwards MD, R2 May 17, 2017 15:54
[2017-05-17] MEDS ORDERED: DOCUSATE SODIUM 50 MG/SENNA 8.6 MG TAB PO PRN (16:30)
[2017-05-17] MEDS ORDERED: ACETAMINOPHEN 325 MG TAB PO PRN (16:30)
[2017-05-17] MEDS ORDERED: LORATADINE 10 MG TAB PO PRN (16:30)
[2017-05-17] MEDS ORDERED: ONDANSETRON HCL 4 MG/2 ML VIAL IV PUSH PRN (16:30)
[2017-05-17] MEDS: SODIUM CHLOR 0.9% 1000 ML INJ 1,000 ML IV SCH (17:00)
[2017-05-17] MEDS ORDERED: LORazepam 2 MG/ML VIAL IV PUSH PRN (17:00)
[2017-05-17] MEDS ORDERED: carBAMazepine 200 MG TAB PO SCH (21:00)
[2017-05-17] MEDS: SODIUM CHLORIDE 0.9% FLUSH 10 ML FLUSH IV FLUSH SCH (21:00)
[2017-05-17] MEDS ORDERED: SODIUM CHLORIDE 0.9% FLUSH 10 ML FLUSH IV FLUSH SCH (21:00)
[2017-05-17] MEDS ORDERED: ASPIRIN EC 81 MG TABEC PO SCH (21:00)
[2017-05-17] MEDS: CARVEDILOL 12.5 MG TAB PO SCH (21:03)
[2017-05-17] MEDS: AMANTADINE HCL 100 MG CAP PO SCH (21:08)
[2017-05-18 00:01] VITALS: PULSE 72
[2017-05-18 02:52] VITALS: BP 110/64; PULSE 72; RESP 18; TEMP 97.5; O2SAT 97
[2017-05-18 04:02] VITALS: PULSE 66
[2017-05-18 05:46] VITALS: BP 100/54; PULSE 78; RESP 16; TEMP 97.3; O2SAT 97
[2017-05-18] MEDS ORDERED: LEVOTHYROXINE SODIUM 100 MCG TAB PO SCH (06:00)
[2017-05-18] MEDS: SODIUM CHLOR 0.9% 1000 ML INJ 1,000 ML IV SCH (06:13)
[2017-05-18 07:25] LABS: BICARBONATE 25.1 MEQ/L (21.0-32.0); POTASSIUM 3.5 MEQ/L (3.5-5.1)
[2017-05-18 07:27] LABS: AUTOMATED NEUTROPHIL # 5.8 TH/MM3 (1.8-7.7); BASOPHIL % 0.4 % (0.0-2.0); EOSINOPHIL # 0.2 TH/MM3 (0-0.4); EOSINOPHIL % 2.7 % (0.0-4.0); HEMATOCRIT 47.3 % (39.0-51.0); HEMO FLAGS DIFF FINAL; LYMPH % 19.1 % (9.0-44.0); LYMPHOCYTE # 1.6 TH/MM3 (1.0-4.8); MEAN CELL VOLUME 93.5 FL (80.0-100.0); MEAN CORPUSCULAR HEMOGLOBIN 32.2 PG (27.0-34.0); MEAN CORPUSCULAR HGB CONC 34.4 % (32.0-36.0); NEUT % 67.8 % (16.0-70.0); PLATELET COUNT 172 TH/MM3 (150-450); RED BLOOD COUNT 5.06 MIL/MM3 (4.50-5.90); WHITE BLOOD COUNT 8.5 TH/MM3 (4.0-11.0)
[2017-05-18 07:35] VITALS: BP 105/60; PULSE 70; RESP 20; TEMP 98.3; O2SAT 95
[2017-05-18] MEDS ORDERED: LISINOPRIL 20 MG TAB PO SCH (09:00)
[2017-05-18] MEDS ORDERED: NON-FORMULARY DRUG (Lisinopril-Hctz 1 TAB) PO SCH (09:00)
[2017-05-18] MEDS ORDERED: METHYLPHENIDATE HCL 5 MG TAB PO SCH (09:00)
[2017-05-18] MEDS ORDERED: HYDROCHLOROTHIAZIDE 25 MG TAB PO SCH (09:00)
[2017-05-18] MEDS: SODIUM CHLORIDE 0.9% FLUSH 10 ML FLUSH IV FLUSH SCH (10:06)
[2017-05-18] MEDS: CARVEDILOL 12.5 MG TAB PO SCH (10:06)
[2017-05-18] MEDS: AMANTADINE HCL 100 MG CAP PO SCH (10:07)
--- NOTE | 2017-05-18 10:23 | HHI.HP ---
[facility] Service Family Medicine Primary Care Physician Dc Perez , Veronica Payton MD Admission Diagnosis syncope, congenital heart disease, seizure disorder. Supratherapeut Diagnoses: (1) Syncope Diagnosis: Principal (2) Elevated carbamazepine level Diagnosis: Principal (3) Congenital heart disease Diagnosis: Principal (4) Hypothyroidism Diagnosis: Principal (5) Lfotxct-Qiwvhpzgv-Vbtet syndrome Diagnosis: Principal (6) Visual impairment Diagnosis: Principal (7) FEN Diagnosis: Principal International Travel<30 Days: No Contact w/Intl Traveler<30days: No Known Affected Area: No History of Present Illness Mr Haider is a 27-year-old male with history of seizures, congenital heart disease, heart failure who presented with syncope. 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 He was sitting up and felt the need to urinate so he went to the bathroom. He subsequently felt continued diaphoresis, nausea and "lightheaded." Patient states walking towards the door where the school nurse or cash posting clerk was located and he started feeling worsening sxs and leaned against the door. He said his legs bent underneath him and slid down the wall. He didn' t hit his head. He states he was only out for a couple seconds. He denied any other symptoms besides dizziness plus the nausea and diaphoresis. Denies any chest pain, shortness of breath, palpitations before the syncopal event. He denies any symptoms after waking up. Stated he felt groggy, but otherwise felt fine. No loss of bowel/bladder function. Per pt, no seizure activity per witnesses. Denies any anxiety before the event. No visual blurring. No headache. Denies any difficulty with urination. States he drinks water occasionally, mainly soda. No vomiting. Patient did have similar symptoms in January of this year, where he was admitted for observation for very similar symptoms. workup was negative at that time. Patient did have elevated carbamazepine level on admission, otherwise no abnormalities. Does have a history of seizures, but has not had one in many years. Does have a history of hypertension and takes several blood pressure medications. He occasionally checks his blood pressure at home. He states the last few days it is running in the 130s systolic. Normally, he doesn't feel dizzy after standing up from sitting. Denies any fever/chills or recent illness. Denies any slurred speech, numbness/tingling, confusion, muscle weakness. Currently, he states he feels back to normal and denies any symptoms currently. He reports other times when he "felt like he was going to pass out" and recognized the sxs this time as well. What prevented a prior episode was lying down in bed and waiting a short time and he felt fine and had no syncope. Several other times he would get up and walk despite his presyncopal sensations and he would go on to have his syncope. We discussed that he needs to pay attention to these sensations and "get his head to the ground" when he feels like he is "about to pass out". Review of Systems Other Constitutional: DENIES: Fever, Chills, Dizziness, Night Sweats Eyes: COMPLAINS OF: Vision loss, DENIES: Diplopia Ears, nose, mouth, throat: DENIES: Nasal discharge, Throat pain, Ear Pain Respiratory: COMPLAINS OF: Cough, DENIES: Wheezing, Shortness of breath Cardiovascular: COMPLAINS OF: Syncope, DENIES: Chest pain, Palpitations Gastrointestinal: DENIES: Abdominal pain, Black stools, Bloody stools, Constipation, Diarrhea, Nausea, Vomiting Genitourinary: DENIES: Urgency, Hematuria, Dysuria Musculoskeletal: DENIES: Joint pain, Muscle aches, Neck pain Integumentary: DENIES: Abnormal pigmentation, Rash Hematologic/lymphatic: DENIES: Bruising, Lymphadenopathy Neurologic: DENIES: Headache, Paresthesias, Seizures Psychiatric: DENIES: Anxiety, Confusion Past Family Social History Past Medical History -Visual impairment (not legally blind) -Seizures (no seizure activity noted for many years) -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 -Arachnoid cyst (found incidentally on CT scan 01/2017). 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 He is hoping to work at an [employer] or work with [employer], his true passion, when he finishes this program salary manager is Roma Cabrera. Emergency contact is Tevin Haider ). For fun, he plays on his computer, rides his electric scooter, and he likes to read. Denies any tobacco, alcohol or illicit drug history. Physical Exam Vital Signs Vital Signs Date Time Temp Pulse Resp B/P (MAP) Pulse Ox O2 Delivery O2 Flow Rate FiO2 05/18/17 07:35 98.3 70 20 105/60 (75) 95 05/18/17 05:46 97.3 78 16 100/54 (69) 97 05/18/17 04:02 66 05/18/17 02:52 97.5 72 18 110/64 (79) 97 05/18/17 00:01 72 05/17/17 20:01 84 05/17/17 19:50 98.0 76 18 128/66 (86) 98 05/17/17 16:51 97.6 74 18 129/88 (102) 99 122/78 (93) 134/81 (98) 05/17/17 16:00 05/17/17 15:20 21 05/17/17 15:00 70 19 122/80 (94) 99 Room Air 05/17/17 13:00 61 19 102/53 (69) 97 Room Air 05/17/17 11:06 100 Room Air 05/17/17 11:00 60 17 95/53 (67) 97 Room Air Physical Exam GENERAL: This is a well-nourished, well-developed patient, in no apparent distress. He is talkative and a good historian SKIN: No rashes, ecchymoses or lesions. Cool and dry. HEAD: Atraumatic. Normocephalic. EYES: Pt with decreased vision at baseline. Extraocular motions intact. No scleral icterus. No injection or drainage. ENT: Nose without bleeding. Airway patent. NECK: Trachea midline. No JVD or lymphadenopathy. Supple, nontender. CARDIOVASCULAR: Regular rate and rhythm without murmurs, gallops, or rubs. RESPIRATORY: Clear to auscultation. Breath sounds equal bilaterally. No wheezes , rales, or rhonchi. GASTROINTESTINAL: Abdomen soft, non-tender, nondistended. No hepato-splenomegaly , or palpable masses. G-tube in place. MUSCULOSKELETAL: Extremities without clubbing, cyanosis, or edema. No joint tenderness, effusion, or edema noted. No calf tenderness. NEUROLOGICAL: Awake and alert. No dysphasia. Cranial nerves II through XII intact. Motor and sensory within normal limits bilaterally. No facial droop. Five out of 5 muscle strength in all muscle groups. Normal speech. Able to perform heel to rodriguez. No cerebellar signs. PSYCH: Awake, alert, orientedx3. No confusion. Good judgement and insight. Normal mood and affect. Laboratory Laboratory Tests Test 05/17/17 11:00 05/17/17 12:00 05/18/17 05:57 White Blood Count 7.0 8.5 Red Blood Count 4.78 5.06 Hemoglobin 15.5 16.3 Hematocrit 44.4 47.3 Mean Corpuscular Volume 93.0 93.5 Mean Corpuscular Hemoglobin 32.5 32.2 Mean Corpuscular Hemoglobin Concent 34.9 34.4 Red Cell Distribution Width 12.9 13.0 Platelet Count 174 172 Mean Platelet Volume 8.1 7.8 Neutrophils (%) (Auto) 61.7 67.8 Lymphocytes (%) (Auto) 22.0 19.1 Monocytes (%) (Auto) 11.4 10.0 Eosinophils (%) (Auto) 4.3 2.7 Basophils (%) (Auto) 0.6 0.4 Neutrophils # (Auto) 4.3 5.8 Lymphocytes # (Auto) 1.5 1.6 Monocytes # (Auto) 0.8 0.9 Eosinophils # (Auto) 0.3 0.2 Basophils # (Auto) 0.0 0.0 CBC Comment DIFF FINAL DIFF FINAL Differential Comment Blood Urea Nitrogen 12 12 Creatinine 0.84 0.69 Random Glucose 65 75 Total Protein 6.8 Albumin 3.5 Calcium Level 8.1 8.8 Alkaline Phosphatase 67 Aspartate Amino Transf (AST/SGOT) 11 Alanine Aminotransferase (ALT/SGPT) 19 Total Bilirubin 0.5 Sodium Level 140 136 Potassium Level 3.5 3.5 Chloride Level 104 102 Carbon Dioxide Level 32.4 25.1 Anion Gap 4 9 Estimat Glomerular Filtration Rate 111 140 Thyroid Stimulating Hormone 3rd Gen 3.080 Carbamazepine (Tegretol) Level 12.1 16.0 Urine Color LIGHT-YELLOW Urine Turbidity CLEAR Urine pH 7.0 Urine Specific [place] 1.009 Urine Protein NEG Urine Glucose (UA) NEG Urine Ketones NEG Urine Occult Blood NEG Urine Nitrite NEG Urine Bilirubin NEG Urine Urobilinogen LESS THAN 2.0 Urine Leukocyte Esterase NEG Urine RBC 1 Urine WBC 1 Microscopic Urinalysis Comment CULT NOT INDICATED Result Diagram: 05/18/1757 05/18/1757 Caprini VTE Risk Assessment Caprini VTE Risk Assessment: No/Low Risk (score <= 1) Caprini Risk Assessment Model Point Value = 1 Point Value = 2 Point Value = 3 Point Value = 5 Age 41-60 Minor surgery BMI > 25 kg/m2 Swollen legs Varicose veins or History of unexplained or recurrent spontaneous Oral contraceptives or hormone replacement Sepsis (< 1 month) Serious lung disease, including pneumonia (< 1 month) Abnormal pulmonary function Acute myocardial infarction Congestive heart failure (< 1 month) History of inflammatory bowel disease Medical patient at bed rest Age 61-74 Arthroscopic surgery Major open surgery (> 45 min) Laparoscopic surgery (> 45 min) Malignancy Confined to bed (> 72 hours) Immobilizing plaster cast Central venous access Age >= 75 History of VTE Family history of VTE Factor V Leiden Prothrombin [id number] Lupus anticoagulant Anticardiolipin antibodies Elevated serum homocysteine Heparin-induced thrombocytopenia Other congenital or acquired thrombophilia Stroke (< 1 month) Elective arthroplasty Hip, pelvis, or leg fracture Acute spinal cord injury (< 1 month) Prophylaxis Regimen Total Risk Factor Score Risk Level Prophylaxis Regimen 0-1 Low Early ambulation 2 Moderate Order ONE of the following: *Sequential Compression Device (SCD) *Heparin 5000 units SQ BID 3-4 Higher Order ONE of the following medications: *Heparin 5000 units SQ TID *Enoxaparin/Lovenox 40 mg SQ daily (WT < 150 kg, CrCl > 30 mL/min) *Enoxaparin/Lovenox 30 mg SQ daily (WT < 150 kg, CrCl > 10-29 mL/min) *Enoxaparin/Lovenox 30 mg SQ BID (WT < 150 kg, CrCl > 30 mL/min) AND/OR *Sequential Compression Device (SCD) 5 or more Highest Order ONE of the following medications: *Heparin 5000 units SQ TID (Preferred with Epidurals) *Enoxaparin/Lovenox 40 mg SQ daily (WT < 150 kg, CrCl > 30 mL/min) *Enoxaparin/Lovenox 30 mg SQ daily (WT < 150 kg, CrCl > 10-29 mL/min) *Enoxaparin/Lovenox 30 mg SQ BID (WT < 150 kg, CrCl > 30 mL/min) AND *Sequential Compression Device (SCD) Assessment and Plan Assessment and Plan 27-year-old male with history of blindness, congenital heart disease presents for syncopal episode. Differential includes vasovagal, orthostatic, arrhythmia, seizures. Was admitted for workup and monitoring. He very much wishes to leave the hospital at this time. He has had no syncope or presyncope here and feels back to normal. It may be that his amlodipine needs to be stopped as he needs his naomi and beta kirill more with his cardiac history. He reports that the school nurse or line haul truck driver checked his BP after his syncopal episode and it was very low so he may have had transient hypotension with his vasovagal episode. He was advised to lie down if he ever feels that way again to prevent syncope. Problem List: (1) Syncope ICD Codes: R55 - Syncope and collapse Status: Acute Plan: DDx includes vasovagal, orthostatic/hypovolemia, electrolyte abnormality , arrhythmia, seizure EKG shows RBBB, no ST changes, sinus rhythm, no QRS prolongation; no changes since EKG in January 2017 CBC wnl. Glucose low at 65, Calcium low at 8.1, otherwise no electrolyte abnormality UA wnl, normal specific gravity, no sign of dehydration -Telemetry -Echocardiogram, per pts request held on echo. he just had one in January -EEG, held per pts request "I've had so many of those and I hate that test" -Neuro checks fine -IVF at low rate due to chronic heart disease/possible heart failure -Orthostatic BP were fine -TSH -Continue home meds, hold amlodipine to prevent hypotension -Ativan PRN seizures -AM CBC, BMP per his history with the nausea, diaphoresis and lightheadedness worse with standing, strongly suspect vasovagal syncope. He was able to avert a prior episode by lying flat and is encouraged to do so in the future if he has any problems that are similar There is no indication at this time that he had a seizure or is having cardiogenic syncope though he does have a known seizure disorder as well as cardiac history of valve replacement (2) Elevated carbamazepine level ICD Codes: R78.89 - Finding of other specified substances, not normally found in blood Status: Acute Plan: Mildly elevated carbamazepine level at 12.1. Elevated to 16 at last admission. No QRS prolongation on EKG -Continue carbamazepine for now. per old notes, he needs to stay on this med but will decrease to 300 mg BID per prior Neurology recommendations. He can follow up with his primary and Neurology. He has not had any seizures in a very long time. -Ativan PRN seizures (3) Congenital heart disease ICD Codes: Q24.9 - Congenital malformation of heart, unspecified Plan: Pt with congenital heart disease and s/p several cardiac surgeries EKG shows RBBB, stable since previous EKG Echo on 01/17/17: EF of 50-55% -Continue home meds, hold amlodipine to prevent low blood pressure -Add back on if hypertensive -Echocardiogram will hold per pts request. he does not report any history of SOB on exertion or other sxs suggestive of CHF at this time (4) Hypothyroidism ICD Codes: E03.9 - Hypothyroidism, unspecified Status: Acute Plan: Chronic hx of hypothyroidism -Continue home Synthroid -TSH (5) Rpdplak-Cbfdlpteo-Gixru syndrome ICD Codes: Q87.2 - Congenital malformation syndromes predominantly involving limbs Status: Chronic Plan: Hx of syndrome that effects RLE -Continue to monitor (6) Visual impairment ICD Codes: H54.7 - Unspecified visual loss Status: Chronic Plan: Pt with visual impairment -Accommodate PRN (7) FEN Plan: Fluids: NS Electrolytes: wnl, continue to monitor Nutrition: Regular diet DVT ppx: SCDs Problem Qualifiers (1) Syncope: Qualified Codes: R55 - Syncope and collapse (2) Hypothyroidism: Qualified Codes: E03.9 - Hypothyroidism, unspecified Fanta Scales MD May 18, 2017 10:23
[2017-05-18] MEDS ORDERED: carBAMazepine 200 MG TAB PO SCH (11:00)
[2017-05-18] MEDS ORDERED: PILL SPLITTER OTHER PRN (11:00)
[2017-05-18] MEDS ORDERED: CARB200T PO (11:07)
[2017-05-18 11:21] VITALS: BP 118/73; PULSE 68; RESP 20; TEMP 98.2; O2SAT 97
--- NOTE | 2017-05-18 11:30 | HHI.DCPOC ---
Discharge Care Plan Diagnosis: (1) Congenital heart disease (2) Syncope (3) Elevated carbamazepine level (4) Dehydration Goals to Promote Your Health * To prevent worsening of your condition and complications * To maintain your health at the optimal level Directions to Meet Your Goals Take your medications as prescribed Follow your dietary instruction Follow activity as directed Keep your appointments as scheduled Take your immunizations and boosters as scheduled If your symptoms worsen call your PCP, if no PCP go to Urgent Care Center or Emergency Room Smoking is Dangerous to Your Health. Avoid second hand smoke Call the 24-hour hour crisis hotline for domestic abuse at Holding amlodipine do not take at this time Decreased Dose of Tegratol to 300mg BID Follow up with PCP, Cardiology, Neurology Huang Downey MD, R3 May 18, 2017 11:09
== END 2017-05-18 14:17 | disposition home or self-care (01) ==
LOC: NEPC 10:02 → NEDA 14:21 → NEPFCDU 16:29
PROVIDERS: ADMIT Family Medicine; ATTEND Family Medicine
DX: R55 Syncope and collapse (principal); Q87.2 Congenital malformation syndromes predominantly involving limbs; Q25.49 Other congenital malformations of aorta; G40.909 Epilepsy, unspecified, not intractable, without status epilepticus; E86.0 Dehydration; E03.9 Hypothyroidism, unspecified; J45.909 Unspecified asthma, uncomplicated; I10 Essential (primary) hypertension; G47.30 Sleep apnea, unspecified; H54.7 Unspecified visual loss
CPT/HCPCS: 80048; 80053; 80156; 81001; 84443; 85025; 93005; 96360; 96361; 99285; G0378; J7030

== ENCOUNTER 2017-07-19 10:02 | Emergency (ER) | payer MEDICARE, MEDICAID ==
[~2017-07-19] VITALS: Ht 157.5 cm; Wt 62.0 kg
[~2017-07-19 10:02] MED LIST changes: -AMLO10TA2 PO; -ASPI1TAB91 PO; +ASPI81TA16 PO; +AUGM875T3 PO; -CIPR500T2 PO; -FLUT1SPR16 EACH NARE; +IBUP1TAB7 PO; -IBUP800T23 PO
[2017-07-19 10:05] VITALS: BP 98/65; PULSE 65; RESP 14; TEMP 98.4; O2SAT 99
--- NOTE | 2017-07-19 10:53 | PD ---
HPI Chief Complaint: Dizziness Time Seen by Provider: 10:46 Travel History International Travel<30 days: No Contact w/Intl Traveler<30days: No Traveled to known affect area: No History of Present Illness HPI Patient is a 27-year-old male with history of hypertension, presents to emergency room for evaluation of hypotension and lightheadedness. Patient reports that he does have history of hypertension, he does take lisinopril/ hydrochlorothiazide for his antihypertensive medication. Patient reports that this morning, he did not eat his breakfast as he did not like the taste of his breakfast, he went to school and felt lightheaded. Reports that when he took his blood pressure was low. Patient reports that he was told to go to the Emergency Room for evaluation. Patient this time with no complaints, denies sensation of lightheadedness or dizziness. Patient denies any chest pain or shortness of breath. Patient with no vision changes, patient with no complaints at this time reports that he feels perfectly fine. PFSH Past Medical History ADD: Yes Asthma: Yes Blood Disorders: No Heart Rhythm Problems: No Cancer: No Cardiovascular Problems: Yes High Cholesterol: No Chest Pain: No Congestive Heart Failure: No Cerebrovascular Accident: Yes Diabetes: No Diminished Hearing: No Endocrine: Yes Gastrointestinal Disorders: Yes (FUNDAL PLACATION - NAUSEA ) Genitourinary: No Hypertension: Yes Musculoskeletal: No Neurologic: Yes (seizure) Psychiatric: No Reproductive: No Respiratory: Yes Seizures: Yes Sleep Apnea: Yes Thyroid Disease: Yes Past Surgical History Abdominal Surgery: Yes (GASTROSTOMY TUBE NON USE ) Cardiac Surgery: Yes (OPEN HEART SX) Thoracic Surgery: Yes Other Surgery: Yes (CLEFT PALATE REPAIR ) Social History Alcohol Use: No (pt denies) Tobacco Use: No (pt denies) Substance Use: No (pt denies) Allergies-Medications (Allergen,Severity, Reaction): Coded Allergies: No Known Allergies (Unverified Adverse Reaction, Unknown, 07/03/17) Reported Meds & Prescriptions Reported Meds & Active Scripts Active Methylphenidate IR (Methylphenidate HCl) 5 Mg Tab 5 Mg PO DAILY Augmentin (Amoxicillin-Clavulanate) 875-125 Mg Tab 1 Tab PO BID Carbamazepine 200 Mg Tab 300 Mg PO Q12HR Amantadine (Amantadine HCl) 100 Mg Tab 200 Mg PO BID Magnesium Citrate Liq (Magnesium Citrate) 300 Ml Liq 300 Ml PO ONCE Carvedilol 12.5 Mg Tab 12.5 Mg PO BID Lisinopril-Hctz 20-25 Mg Tab 1 Tab PO DAILY Levothyroxine (Levothyroxine Sodium) 100 Mcg Tab 100 Mcg PO DAILY Ibuprofen 800 Mg Tab 800 Mg PO Q8H PRN Reported Aspirin Adult Low Strength (Aspirin) 81 Mg Tabdr 81 Mg PO DAILY IN THE PM Zofran (Ondansetron HCl) 4 Mg Tab 4 Mg PO Q6HR PRN Claritin (Loratadine) 10 Mg Cap 10 Mg PO DAILY PRN Review of Systems General / Constitutional: No: Fever Eyes: No: Visual changes HENT: No: Headaches Cardiovascular: No: Chest Pain or Discomfort Respiratory: No: Shortness of Breath Gastrointestinal: No: Abdominal Pain Genitourinary: No: Dysuria Musculoskeletal: No: Pain Skin: No Rash Neurologic: No: Weakness Psychiatric: No: Depression Endocrine: No: Polydipsia Hematologic/Lymphatic: No: Easy Bruising Physical Exam Narrative GENERAL: NAD SKIN: Focused skin assessment warm/dry. HEAD: Atraumatic. Normocephalic. EYES: Pupils equal and round. No scleral icterus. No injection or drainage. ENT: No nasal bleeding or discharge. Mucous membranes pink and moist. NECK: Trachea midline. No JVD. CARDIOVASCULAR: Regular rate and rhythm. No murmur appreciated. RESPIRATORY: No accessory muscle use. Clear to auscultation. Breath sounds equal bilaterally. GASTROINTESTINAL: Abdomen soft, non-tender, nondistended. Hepatic and splenic margins not palpable. MUSCULOSKELETAL: No obvious deformities. No clubbing. No cyanosis. No edema. NEUROLOGICAL: Awake and alert. No obvious cranial nerve deficits. Motor grossly within normal limits. Normal speech. CN 2-12 grossly intact with no neurological deficits PSYCHIATRIC: Appropriate mood and affect; insight and judgment normal. Data Data Last Documented VS Vital Signs Date Time Temp Pulse Resp B/P (MAP) Pulse Ox O2 Delivery O2 Flow Rate FiO2 07/19/17 10:05 98.4 65 14 98/65 (76) 99 Orders Orders Electrocardiogram (07/19/17 ) Basic Metabolic Panel (Bmp) (07/19/17 10:46) Complete Blood Count With Diff (07/19/17 10:46) Iv Access Insert/Monitor (07/19/17 10:46) Sodium Chloride 0.9% Flush (Ns Flush) (07/19/17 11:00) Sodium Chlor 0.9% 1000 Ml Inj (Ns 1000 M (07/19/17 11:00) Labs Laboratory Tests Test 07/19/17 11:05 White Blood Count 15.2 TH/MM3 Red Blood Count 5.07 MIL/MM3 Hemoglobin 16.5 GM/DL Hematocrit 48.1 % Mean Corpuscular Volume 94.8 FL Mean Corpuscular Hemoglobin 32.6 PG Mean Corpuscular Hemoglobin Concent 34.4 % Red Cell Distribution Width 12.8 % Platelet Count 274 TH/MM3 Mean Platelet Volume 7.9 FL Neutrophils (%) (Auto) 84.7 % Lymphocytes (%) (Auto) 8.0 % Monocytes (%) (Auto) 5.7 % Eosinophils (%) (Auto) 1.2 % Basophils (%) (Auto) 0.4 % Neutrophils # (Auto) 12.8 TH/MM3 Lymphocytes # (Auto) 1.2 TH/MM3 Monocytes # (Auto) 0.9 TH/MM3 Eosinophils # (Auto) 0.2 TH/MM3 Basophils # (Auto) 0.1 TH/MM3 CBC Comment DIFF FINAL Differential Comment Blood Urea Nitrogen 13 MG/DL Creatinine 0.98 MG/DL Random Glucose 73 MG/DL Calcium Level 9.1 MG/DL Sodium Level 134 MEQ/L Potassium Level 3.5 MEQ/L Chloride Level 97 MEQ/L Carbon Dioxide Level 31.4 MEQ/L Anion Gap 6 MEQ/L Estimat Glomerular Filtration Rate 93 ML/MIN MDM Medical Decision Making Medical Screen Exam Complete: Yes Emergency Medical Condition: Yes Medical Record Reviewed: Yes Interpretation(s) EKG at 1051: NSR at 63bpm, rbbb with t wave changes, EKG similar when compared to ekg from 01/26/17 Vital Signs Date Time Temp Pulse Resp B/P (MAP) Pulse Ox O2 Delivery O2 Flow Rate FiO2 07/19/17 10:05 98.4 65 14 98/65 (07) 99 Differential Diagnosis electrolyte abnormality, dehydration Narrative Course 27 year old male who presents to the ER with complaints of an episode of hypotension and lightheadedness. Lightheadedness has since resolved upon arrival to the ER. Patient with no complaints at this time. During the course of the patients emergency department visit, the patients history, examination, and differential diagnosis were reviewed with the patient. The patient was placed on a cnc lathe machinist with oximetry and frequent blood pressure monitoring. The patient had an IV access obtained and blood work sent for analysis. The patient was initially provided IVF The patients laboratory studies were reviewed and remarkable for: CBC & BMP Diagram 07/19/17 11:05 Calcium Level 9.1 Patient with wbc 15.2 - most likely stress response. Patient with no complaints at this time, patient is feeling much better. BP after 1 liter of IVF was 127/75 Patient safe to be discharged to home with outpatient follow up. Diagnosis Primary Impression: Lightheadedness Patient Instructions: General Instructions Additional Instructions: Please drink plenty of fluids Please follow up with your primary care doctor in 2-3 days Return to the ER if symptoms worsen or progress Return to the ER as needed Disposition: 01 DISCHARGE HOME Condition: Stable Sera Peterson DO Jul 19, 2017 10:53
[2017-07-19] MEDS ORDERED: SODIUM CHLORIDE 0.9% FLUSH 10 ML FLUSH IVF PRN (11:00)
[2017-07-19] MEDS ORDERED: SODIUM CHLOR 0.9% 1000 ML INJ 1,000 ML IV ONE (11:00)
[2017-07-19 11:34] LABS: AUTOMATED NEUTROPHIL # 12.8 TH/MM3 (1.8-7.7); BASOPHIL # 0.1 TH/MM3 (0-0.2); BASOPHIL % 0.4 % (0.0-2.0); EOSINOPHIL # 0.2 TH/MM3 (0-0.4); EOSINOPHIL % 1.2 % (0.0-4.0); HEMATOCRIT 48.1 % (39.0-51.0); HEMO FLAGS DIFF FINAL; LYMPHOCYTE # 1.2 TH/MM3 (1.0-4.8); MEAN CELL VOLUME 94.8 FL (80.0-100.0); MEAN CORPUSCULAR HEMOGLOBIN 32.6 PG (27.0-34.0); MEAN CORPUSCULAR HGB CONC 34.4 % (32.0-36.0); MONO % 5.7 % (0.0-8.0); NEUT % 84.7 % (16.0-70.0); PLATELET COUNT 274 TH/MM3 (150-450); RED BLOOD COUNT 5.07 MIL/MM3 (4.50-5.90); RED CELL DISTRIBUTION WIDTH 12.8 % (11.6-17.2); WHITE BLOOD COUNT 15.2 TH/MM3 (4.0-11.0)
[2017-07-19 11:49] LABS: BICARBONATE 31.4 MEQ/L (21.0-32.0); POTASSIUM 3.5 MEQ/L (3.5-5.1)
[2017-07-19 11:55] VITALS: BP 127/75; PULSE 74; RESP 18; O2SAT 97
--- NOTE | 2017-07-20 10:29 | EKG ---
Date Performed: 07/19/2017 Time Performed: 10:51:04 PTAGE: 27 years EKG: Sinus rhythm RIGHT BUNDLE BRANCH BLOCK ABNORMAL ECG PREVIOUS TRACING : 05/17/2017 10.14 Compared to prior tracing no significant change DOCTOR: Keyon Hdez Interpretating Date/Time 07/20/2017 10:27:36
[2017-07-27] MEDS ORDERED: METH5TAB7 PO (08:42)
== END 2017-07-19 12:13 | disposition home or self-care (01) ==
LOC: NEPD 10:02
DX: R42 Dizziness and giddiness (principal); I10 Essential (primary) hypertension; E07.9 Disorder of thyroid, unspecified
CPT/HCPCS: 80048; 85025; 93005; 99284; J7030

== ENCOUNTER 2017-09-03 09:33 | Emergency (ER) | payer MEDICARE, MEDICAID ==
[2017-09-03] MEDS: SODIUM CHLOR 0.9% 1000 ML INJ 1,000 ML IV (10:20)
[2017-09-03] MEDS: ONDANSETRON HCL 4 MG/2 ML VIAL IV PUSH (10:20)
[2017-09-03] MEDS: RESP: ALBUTEROL 2.5 MG/IPRATROPIUM 0.5 MG NEB (SCH) NEB (10:31)
[2017-09-03] MEDS: RESP: LIDOCAINE HCL 4% PF 5 ML NEB NEB (10:32)
[2017-09-03 10:34] LABS: AUTOMATED NEUTROPHIL # 6.8 TH/MM3 (1.8-7.7); BASOPHIL % 0.4 % (0.0-2.0); EOSINOPHIL # 0.1 TH/MM3 (0-0.4); EOSINOPHIL % 0.7 % (0.0-4.0); HEMATOCRIT 51.9 % (39.0-51.0); HEMO FLAGS DIFF FINAL; LYMPHOCYTE # 0.8 TH/MM3 (1.0-4.8); MEAN CELL VOLUME 92.6 FL (80.0-100.0); MEAN CORPUSCULAR HEMOGLOBIN 32.1 PG (27.0-34.0); MEAN CORPUSCULAR HGB CONC 34.7 % (32.0-36.0); MEAN PLATELET VOLUME 8.2 FL (7.0-11.0); MONO % 11.2 % (0.0-8.0); NEUT % 78.7 % (16.0-70.0); PLATELET COUNT 198 TH/MM3 (150-450); RED BLOOD COUNT 5.61 MIL/MM3 (4.50-5.90); RED CELL DISTRIBUTION WIDTH 12.5 % (11.6-17.2); WHITE BLOOD COUNT 8.7 TH/MM3 (4.0-11.0)
[2017-09-03 10:55] LABS: ANION GAP 8 MEQ/L (5-15); BICARBONATE 28.8 MEQ/L (21.0-32.0); BLOOD UREA NITROGEN 13 MG/DL (7-18); CALCIUM 8.9 MG/DL (8.5-10.1); CHLORIDE 95 MEQ/L (98-107); CREATININE 0.83 MG/DL (0.60-1.30); GLOMERULAR FILTRATION RATE 113 ML/MIN (>89); GLUCOSE,RANDOM 91 MG/DL (74-106); POTASSIUM 3.7 MEQ/L (3.5-5.1); SODIUM (NA) 132 MEQ/L (136-145)
[2017-09-03] MEDS: AZITHROMYCIN INJ 500 MG in SODIUM CHLOR 0.9% 250 ML INJ 250 ML IV (11:00)
== END 2017-09-03 12:45 | disposition home or self-care (01) ==
LOC: NEPE 09:33
DX: J18.9 Pneumonia, unspecified organism (principal); R11.0 Nausea; R42 Dizziness and giddiness; E86.0 Dehydration; F98.8 Other specified behavioral and emotional disorders with onset usually occurring in childhood and adolescence; J45.909 Unspecified asthma, uncomplicated; I10 Essential (primary) hypertension; R56.9 Unspecified convulsions; Z86.73 Personal history of transient ischemic attack (TIA), and cerebral infarction without residual deficits
CPT/HCPCS: 71045; 80048; 85025; 87804; 87804-59; 94664; 96374; 96375; 99284-25